=== PATIENT | male | born 1945 | race Caucasian/White ===

== ENCOUNTER 2017-03-01 23:01 | Inpatient (IN) | payer OTHER ==
[~2017-03-01] VITALS: Ht 190.5 cm; Wt 107.5 kg
[~2017-03-01 23:01] MED LIST: AMOCLA875 PO; ASPI81EC PO; CEPH500 PO; CLOP75 PO; GLIM4 PO; GLYB1.5 PO; Humulin N100 UNIT/1 SQ; KAYEXALATE PO; LEVFLO500 PO; LISI20 PO; METF500 PO; MULVIT PO; NOVOLIN; RIFA300 PO; SODBIC650 PO; SULTRIDS PO; VANCOMYCIN1.5 GM/250 IV; VICODIN 5-3001 EACH PO; [UNRECOGNIZED DRUG - SUPPLY]
[2017-03-01 23:55] LABS: BASOPHILS ABSOLUTE AUTO 0.02 K/mm3 (0.00-0.23); BASOPHILS PERCENT AUTO 0 % (0-2); EOSINOPHILS PERCENT AUTO 0 % (0-6); Hematocrit 32.6 % (37.0-53.0); Hemoglobin 11.3 g/dL (13.5-17.5); IMMATURE GRAN ABSOLUTE AUTO 0.05 K/mm3 (0.00-0.10); IMMATURE GRAN PERCENT AUTO 0 % (0-1); LYMPHOCYTES ABSOLUTE AUTO 0.48 K/mm3 (0.84-5.20); LYMPHOCYTES PERCENT AUTO 4 % (21-46); MONOCYTES ABSOLUTE AUTO 0.84 K/mm3 (0.16-1.47); MONOCYTES PERCENT AUTO 6 % (4-13); Mean Corpuscular HGB 31.7 pg (26.0-34.0); Mean Corpuscular HGB Conc 34.7 g/dL (31.5-36.5); Mean Corpuscular Volume 92 fL (80-100); Mean Platelet Volume 9.1 fL (9.1-12.4); NEUTROPHILS ABSOLUTE AUTO 12.44 K/mm3 (1.96-9.15); NEUTROPHILS PERCENT AUTO 90 % (41-73); Platelet Count 227 K/mm3 (150-400); RDW Coefficient Variation 13.1 % (11.7-14.2); RDW Standard Deviation 43.5 fL (35.1-46.3); Red Blood Cell Count 3.56 M/mm3 (4.30-5.90); White Blood Cell Count 13.83 K/mm3 (4.00-11.30)
[2017-03-02 00:07] LABS: Influenza A Negative (NEGATIVE); Influenza B Negative (NEGATIVE)
[2017-03-02 00:07] LABS: International Normalized Ratio 1.18; Prothrombin Time Results 12.3 Sec (9.7-11.5)
[2017-03-02 00:18] LABS: Albumin, Blood 3.6 g/dL (3.4-5.0); Albumin/Globulin Ratio 0.8 (0.8-1.8); Bilirubin, Total 0.7 mg/dL (0.1-1.0); Bun/Creatinine Ratio 20.4 (12.0-20.0); Calcium, Blood 8.5 mg/dL (8.5-10.1); Creatinine, Blood 2.16 mg/dL (0.60-1.20); Globulin, Blood 4.5 g/dL (2.2-4.0); Potassium, Blood 5.6 mmol/L (3.5-5.5); Total Protein, Blood 8.1 g/dL (6.4-8.2)
[2017-03-02 00:24] LABS: Troponin I 0.818 ng/mL (0.000-0.040)
[2017-03-02 02:31] LABS: Source, Urine Clean Catch
[2017-03-02 02:34] LABS: Bilirubin, Urine Neg (Neg); Blood, Urine 3+ (Neg); Glucose Qualitative, Urine 3+ (Neg); Ketones, Urine Neg (Neg); Leukocyte Esterase, Urine 3+ (Neg); Nitrite, Urine Pos (Neg); Protein, Urine 3+ (Neg); Specific Gravity, Urine 1.015 (1.003-1.022); Urobilinogen, Urine NORM (Normal)
[2017-03-02 02:40] LABS: Appearance, Urine Cloudy (Clear); Bacteria Many /hpf; Color, Urine Yellow (P-Yellow); Squamous Epithelial Cells Few /hpf (Few); White Blood Cells, Urine 25-50 /hpf (0-5)
[2017-03-02 02:41] LABS: Amorphous Light (0-Heavy)
[2017-03-02 09:15] LABS: Troponin I 0.891 ng/mL (0.000-0.040)
[2017-03-02 15:32] LABS: BASOPHILS ABSOLUTE AUTO 0.01 K/mm3 (0.00-0.23); BASOPHILS PERCENT AUTO 0 % (0-2); EOSINOPHILS PERCENT AUTO 0 % (0-6); Hematocrit 29.7 % (37.0-53.0); Hemoglobin 10.3 g/dL (13.5-17.5); IMMATURE GRAN ABSOLUTE AUTO 0.02 K/mm3 (0.00-0.10); IMMATURE GRAN PERCENT AUTO 0 % (0-1); LYMPHOCYTES ABSOLUTE AUTO 0.61 K/mm3 (0.84-5.20); LYMPHOCYTES PERCENT AUTO 5 % (21-46); MONOCYTES ABSOLUTE AUTO 0.58 K/mm3 (0.16-1.47); MONOCYTES PERCENT AUTO 5 % (4-13); Mean Corpuscular HGB 31.7 pg (26.0-34.0); Mean Corpuscular HGB Conc 34.7 g/dL (31.5-36.5); Mean Corpuscular Volume 91 fL (80-100); NEUTROPHILS ABSOLUTE AUTO 11.27 K/mm3 (1.96-9.15); NEUTROPHILS PERCENT AUTO 90 % (41-73); Platelet Count 197 K/mm3 (150-400); RDW Coefficient Variation 13.4 % (11.7-14.2); RDW Standard Deviation 44.7 fL (35.1-46.3); Red Blood Cell Count 3.25 M/mm3 (4.30-5.90); White Blood Cell Count 12.49 K/mm3 (4.00-11.30)
[2017-03-02 16:02] LABS: Alanine Aminotransfer (ALT/SGP 20 U/L (12-78); Albumin, Blood 3.1 g/dL (3.4-5.0); Albumin/Globulin Ratio 0.7 (0.8-1.8); Alk Phos 57 U/L (50-136); Anion Gap 13 mmol/L (6-16); Aspartate Aminotrans (AST/SGOT 26 U/L (12-37); Bilirubin, Total 0.5 mg/dL (0.1-1.0); Blood Urea Nitrogen 51 mg/dL (8-24); Bun/Creatinine Ratio 19.7 (12.0-20.0); CO2, Blood 19 mmol/L (21-32); CPK Creatine Kinase 272 U/L (39-308); Calcium, Blood 8.2 mg/dL (8.5-10.1); Chloride, Blood 102 mmol/L (98-108); Creatinine, Blood 2.59 mg/dL (0.60-1.20); Globulin, Blood 4.2 g/dL (2.2-4.0); Glomerular Filtration Rate 26 (60-); Glucose, Blood 261 mg/dL (70-99); Phosphorus, Blood 2.7 mg/dL (2.5-4.9); Potassium, Blood 5.1 mmol/L (3.5-5.5); Sodium, Blood 134 mmol/L (136-145); Total Protein, Blood 7.3 g/dL (6.4-8.2); Troponin I 0.448 ng/mL (0.000-0.040)
[2017-03-02] MEDS ORDERED: GEMF600 PO (17:26)
[2017-03-02] MEDS ORDERED: TRADJENTA5 MG PO (17:27)
[2017-03-02] MEDS ORDERED: LISI5 PO (17:27)
[2017-03-02] MEDS ORDERED: GABA300 PO (17:27)
[2017-03-03 05:03] LABS: Hematocrit 28.6 % (37.0-53.0); Hemoglobin 9.8 g/dL (13.5-17.5); Mean Corpuscular HGB 31.4 pg (26.0-34.0); Mean Corpuscular HGB Conc 34.3 g/dL (31.5-36.5); Mean Corpuscular Volume 92 fL (80-100); Mean Platelet Volume 9.3 fL (9.1-12.4); Platelet Count 193 K/mm3 (150-400); RDW Coefficient Variation 13.3 % (11.7-14.2); RDW Standard Deviation 44.3 fL (35.1-46.3); Red Blood Cell Count 3.12 M/mm3 (4.30-5.90); White Blood Cell Count 10.83 K/mm3 (4.00-11.30)
[2017-03-03 05:24] LABS: Albumin/Globulin Ratio 0.7 (0.8-1.8); Bilirubin, Total 0.6 mg/dL (0.1-1.0); Bun/Creatinine Ratio 19.7 (12.0-20.0); Calcium, Blood 8.2 mg/dL (8.5-10.1); Creatinine, Blood 2.54 mg/dL (0.60-1.20); Globulin, Blood 4.2 g/dL (2.2-4.0); Potassium, Blood 4.3 mmol/L (3.5-5.5); Total Protein, Blood 7.2 g/dL (6.4-8.2)
[2017-03-03 06:24] LABS: BAND PERCENT MAN 6 % (0-8); BASOPHILS PERCENT MAN 0 % (0-2); EOSINOPHILS PERCENT MAN 1 % (0-6); LYMPHOCYTES ABSOLUTE MAN 1.08 K/mm3 (0.84-5.20); LYMPHOCYTES PERCENT MAN 10 % (21-46); MONOCYTES ABSOLUTE MAN 0.32 K/mm3 (0.16-1.47); MONOCYTES PERCENT MAN 3 % (4-13); NEUTROPHILS ABSOLUTE MAN 9.31 K/mm3 (1.96-9.15); SEG NEUTROPHILS PERCENT MAN 80 % (41-73); TOTAL CELLS COUNTED 100
[2017-03-04 05:19] LABS: BASOPHILS ABSOLUTE AUTO 0.01 K/mm3 (0.00-0.23); BASOPHILS PERCENT AUTO 0 % (0-2); EOSINOPHILS ABSOLUTE AUTO 0.21 K/mm3 (0.00-0.68); EOSINOPHILS PERCENT AUTO 3 % (0-6); Hematocrit 28.3 % (37.0-53.0); Hemoglobin 9.6 g/dL (13.5-17.5); IMMATURE GRAN ABSOLUTE AUTO 0.02 K/mm3 (0.00-0.10); IMMATURE GRAN PERCENT AUTO 0 % (0-1); LYMPHOCYTES ABSOLUTE AUTO 1.32 K/mm3 (0.84-5.20); LYMPHOCYTES PERCENT AUTO 17 % (21-46); MONOCYTES ABSOLUTE AUTO 0.84 K/mm3 (0.16-1.47); MONOCYTES PERCENT AUTO 11 % (4-13); Mean Corpuscular HGB 31.2 pg (26.0-34.0); Mean Corpuscular HGB Conc 33.9 g/dL (31.5-36.5); Mean Corpuscular Volume 92 fL (80-100); Mean Platelet Volume 9.5 fL (9.1-12.4); NEUTROPHILS ABSOLUTE AUTO 5.21 K/mm3 (1.96-9.15); NEUTROPHILS PERCENT AUTO 69 % (41-73); Platelet Count 202 K/mm3 (150-400); RDW Coefficient Variation 13.4 % (11.7-14.2); RDW Standard Deviation 45.2 fL (35.1-46.3); Red Blood Cell Count 3.08 M/mm3 (4.30-5.90); White Blood Cell Count 7.61 K/mm3 (4.00-11.30)
[2017-03-04 05:40] LABS: Albumin, Blood 2.9 g/dL (3.4-5.0); Albumin/Globulin Ratio 0.7 (0.8-1.8); Bilirubin, Total 0.4 mg/dL (0.1-1.0); Bun/Creatinine Ratio 21.7 (12.0-20.0); Calcium, Blood 8.1 mg/dL (8.5-10.1); Creatinine, Blood 2.17 mg/dL (0.60-1.20); Globulin, Blood 4.1 g/dL (2.2-4.0)
[2017-03-05 04:47] LABS: BASOPHILS ABSOLUTE AUTO 0.03 K/mm3 (0.00-0.23); BASOPHILS PERCENT AUTO 0 % (0-2); EOSINOPHILS ABSOLUTE AUTO 0.21 K/mm3 (0.00-0.68); EOSINOPHILS PERCENT AUTO 3 % (0-6); Hematocrit 26.9 % (37.0-53.0); Hemoglobin 9.1 g/dL (13.5-17.5); IMMATURE GRAN ABSOLUTE AUTO 0.05 K/mm3 (0.00-0.10); IMMATURE GRAN PERCENT AUTO 1 % (0-1); LYMPHOCYTES PERCENT AUTO 19 % (21-46); MONOCYTES ABSOLUTE AUTO 0.73 K/mm3 (0.16-1.47); MONOCYTES PERCENT AUTO 9 % (4-13); Mean Corpuscular HGB Conc 33.8 g/dL (31.5-36.5); Mean Corpuscular Volume 92 fL (80-100); Mean Platelet Volume 9.4 fL (9.1-12.4); NEUTROPHILS ABSOLUTE AUTO 5.42 K/mm3 (1.96-9.15); NEUTROPHILS PERCENT AUTO 68 % (41-73); Platelet Count 206 K/mm3 (150-400); RDW Coefficient Variation 12.8 % (11.7-14.2); RDW Standard Deviation 42.5 fL (35.1-46.3); Red Blood Cell Count 2.94 M/mm3 (4.30-5.90); White Blood Cell Count 7.94 K/mm3 (4.00-11.30)
[2017-03-05 05:08] LABS: Albumin, Blood 2.9 g/dL (3.4-5.0); Albumin/Globulin Ratio 0.7 (0.8-1.8); Bilirubin, Total 0.4 mg/dL (0.1-1.0); Bun/Creatinine Ratio 21.1 (12.0-20.0); Calcium, Blood 8.2 mg/dL (8.5-10.1); Creatinine, Blood 1.8 mg/dL (0.60-1.20); Globulin, Blood 4.1 g/dL (2.2-4.0)
[2017-03-05] MEDS ORDERED: Acetaminophen325 M1 PO (12:25)
[2017-03-05] MEDS ORDERED: LEVEMIR FL100 UNIT/1 SC (12:26)
[2017-03-05] MEDS ORDERED: INSU100I6 SC (12:26)
[2017-03-05] MEDS ORDERED: CIPR500 PO (12:27)
== END 2017-03-05 14:36 | disposition home or self-care (01) | DRG 872 ==
LOC: ER 23:01 → MEDS 03-02 00:48 → ENPENDDIS 03-05 12:00 → MEDS 03-05 14:36
PROVIDERS: Emergency Medicine; Internal Medicine; Internal Medicine Endocrinology, Diabetes & Metabolism
DX: A41.51 Sepsis due to Escherichia coli [E. coli] (principal); E11.22 Type 2 diabetes mellitus with diabetic chronic kidney disease; E87.2 Acidosis; E11.40 Type 2 diabetes mellitus with diabetic neuropathy, unspecified; E11.65 Type 2 diabetes mellitus with hyperglycemia; I12.9 Hypertensive chronic kidney disease with stage 1 through stage 4 chronic kidney disease, or unspecified chronic kidney disease; E87.5 Hyperkalemia; N18.3 Chronic kidney disease, stage 3 (moderate); D63.1 Anemia in chronic kidney disease; E86.9 Volume depletion, unspecified; Z88.8 Allergy status to other drugs, medicaments and biological substances; Z79.84 Long term (current) use of oral hypoglycemic drugs; Z79.02 Long term (current) use of antithrombotics/antiplatelets; Z79.82 Long term (current) use of aspirin; Z79.899 Other long term (current) drug therapy; Z89.422 Acquired absence of other left toe(s)
CPT/HCPCS: 36415; 71046; 80053; 81001; 82550; 82947; 83605; 84100; 84145; 84484; 85025; 85610; 85730; 87040; 87077; 87086; 87186; 87804; 93005; 93010; 96365; 99285; J0610; J0696; J1650; J1815; J7030; Q2038

== ENCOUNTER 2019-02-14 16:53 | Inpatient (IN) | payer OTHER ==
[~2019-02-14] VITALS: Ht 190.5 cm; Wt 109.8 kg
[~2019-02-14 16:53] MED LIST changes: +Acetaminophen325 M1 PO; +CIPR500 PO; +GABA300 PO; +GEMF600 PO; +INSU100I6 SC; +LEVEMIR FL100 UNIT/1 SC; +LISI5 PO; +TRADJENTA5 MG PO
[2019-02-14 17:16] LABS: Source, Urine Clean Catch
[2019-02-14 17:23] LABS: Bilirubin, Urine Neg (Neg); Blood, Urine 4+ (Neg); Glucose Qualitative, Urine 3+ (Neg); Ketones, Urine 1+ (Neg); Leukocyte Esterase, Urine 3+ (Neg); Nitrite, Urine Pos (Neg); Protein, Urine 4+ (Neg); Urobilinogen, Urine NORM (Normal)
[2019-02-14 17:31] LABS: Appearance, Urine Hazy (Clear); Color, Urine Yellow (P-Yellow)
[2019-02-14 17:32] LABS: White Blood Cells, Urine 50-100 /hpf (0-5)
[2019-02-14 17:33] LABS: Bacteria Many /hpf; Squamous Epithelial Cells Few /hpf (Few)
[2019-02-14 17:35] LABS: Calcium, Ionized (POC) 1.17 mmol/L (1.10-1.46); Chloride (POC) 108 mmol/L (98-108); Glucose (ISTAT POC) 410 mg/dL (70-99); Hemoglobin (POC) 10.2 g/dL (13.5-17.5); Potassium (POC) 4.8 mmol/L (3.5-5.5); Sodium (POC) 136 mmol/L (135-148); Total CO2 (POC) 19 mmol/L (21-32)
[2019-02-14 17:37] LABS: BASOPHILS ABSOLUTE AUTO 0.04 K/mm3 (0.00-0.23); BASOPHILS PERCENT AUTO 0 % (0-2); EOSINOPHILS ABSOLUTE AUTO 0.15 K/mm3 (0.00-0.68); EOSINOPHILS PERCENT AUTO 1 % (0-6); Hematocrit 32.4 % (37.0-53.0); Hemoglobin 10.7 g/dL (13.5-17.5); IMMATURE GRAN ABSOLUTE AUTO 0.07 K/mm3 (0.00-0.10); IMMATURE GRAN PERCENT AUTO 0 % (0-1); LYMPHOCYTES ABSOLUTE AUTO 0.79 K/mm3 (0.84-5.20); LYMPHOCYTES PERCENT AUTO 5 % (21-46); MONOCYTES ABSOLUTE AUTO 1.17 K/mm3 (0.16-1.47); MONOCYTES PERCENT AUTO 7 % (4-13); Mean Corpuscular HGB 30.2 pg (26.0-34.0); Mean Corpuscular Volume 92 fL (80-100); Mean Platelet Volume 9.7 fL (9.1-12.4); NEUTROPHILS ABSOLUTE AUTO 14.96 K/mm3 (1.96-9.15); NEUTROPHILS PERCENT AUTO 87 % (41-73); Platelet Count 301 K/mm3 (150-400); RDW Coefficient Variation 11.9 % (11.7-14.2); Red Blood Cell Count 3.54 M/mm3 (4.30-5.90); White Blood Cell Count 17.18 K/mm3 (4.00-11.30)
[2019-02-14 18:06] LABS: Alanine Aminotransfer (ALT/SGP 24 U/L (12-78); Albumin, Blood 2.9 g/dL (3.4-5.0); Albumin/Globulin Ratio 0.6 (0.8-1.8); Alk Phos 102 U/L (50-136); Anion Gap 8 mmol/L (6-16); Aspartate Aminotrans (AST/SGOT 50 U/L (12-37); Bilirubin, Total 0.7 mg/dL (0.1-1.0); Blood Urea Nitrogen 49 mg/dL (8-24); Bun/Creatinine Ratio 25.7 (12.0-20.0); CHOL/HDL RATIO 3.4; CO2, Blood 20 mmol/L (21-32); Calcium, Blood 8.8 mg/dL (8.5-10.1); Chloride, Blood 109 mmol/L (98-108); Cholesterol 159 mg/dL (50-200); Creatinine, Blood 1.91 mg/dL (0.60-1.20); Glomerular Filtration Rate 37 (60-); Glucose, Blood 393 mg/dL (70-99); HDL Cholesterol 47 mg/dL (>39); LDL/HDL RATIO 1.7; Low Density Lipoprotein Chol 82 mg/dL (0-110); Magnesium, Blood 1.6 mg/dL (1.6-2.4); Potassium, Blood 4.7 mmol/L (3.5-5.5); Sodium, Blood 137 mmol/L (136-145); Total Protein, Blood 7.9 g/dL (6.4-8.2); Triglycerides 149 mg/dL (30-160); Very Low Density Lipoprot Chol 29 mg/dL (6-32)
--- NOTE | 2019-02-14 20:15 | NUR ---
Echocardiogram using 0.60ml of Definity contrast performed.
[2019-02-14 21:55] LABS: Influenza A Negative (NEGATIVE); Influenza B Negative (NEGATIVE)
--- NOTE | 2019-02-14 22:17 | NUR ---
PATIENT ARRIVED TO ICU 9 @ 1915 FROM [facility] PATIENT PLACED ON ICU MONITORS, AWAITING ROOM FOR TRANSFER TO [facility]. PATIENT DENIES PAIN AT THIS TIME. TR BAND IN PLACE TO RIGHT WRIST, AREA CLEAR AND NO SWELLING SEEN. HIGH SCALER ARRIVED AND DOCTOR ORO IN TO SEE PATIENT REGARDING ADMIT UNTIL ABLE TO TRANSFER, CONSULT TO DOCTOR CERNA FOR ANTIBIOTIC AND INSULIN ORDERS, DUE TO PASSABLE SEPSIS. WOUND TO LEFT FOOT WITH DRESSING INTACT. DRESSING REMOVED BY DOCTOR CERNA AND MRSA SWAB OBTAINED FROM WOUND NARES AND THROAT. AT APROX 2100 ROOM ASSIGNMENT OBTAINED PER DOCTOR ORO HOLD HEPARIN DRIP AT THIS TIME PLAN TO START AFTER TRANSFER IF NEEDED, START PLAVIX TOMORROW. AT 2218 TRANSPORT HERE MERREM DONE AND VANCO STARTED. REPORT GIVEN TO LLOYD THURMAN AT CCU IN [facility]
== END 2019-02-14 22:18 | disposition short-term general hospital (02) | DRG 250 ==
LOC: ER 16:53 → ICUW 17:26
PROVIDERS: Emergency Medicine; Physician Assistant; ADMIT Internal Medicine Interventional Cardiology
PROC: 4A023N7 Measurement of Cardiac Sampling and Pressure, Left Heart, Percutaneous Approach (ICD-10-PCS; principal; 2019-02-14)
PROC: 02703ZZ Dilation of Coronary Artery, One Artery, Percutaneous Approach (ICD-10-PCS; 2019-02-14)
PROC: B2111ZZ Fluoroscopy of Multiple Coronary Arteries using Low Osmolar Contrast (ICD-10-PCS; 2019-02-14)
DX: I21.3 ST elevation (STEMI) myocardial infarction of unspecified site (principal); A41.9 Sepsis, unspecified organism; L03.116 Cellulitis of left lower limb; L97.429 Non-pressure chronic ulcer of left heel and midfoot with unspecified severity; E11.51 Type 2 diabetes mellitus with diabetic peripheral angiopathy without gangrene; E11.22 Type 2 diabetes mellitus with diabetic chronic kidney disease; I12.9 Hypertensive chronic kidney disease with stage 1 through stage 4 chronic kidney disease, or unspecified chronic kidney disease; I25.10 Atherosclerotic heart disease of native coronary artery without angina pectoris; E11.621 Type 2 diabetes mellitus with foot ulcer; N18.3 Chronic kidney disease, stage 3 (moderate); Z89.422 Acquired absence of other left toe(s); Z79.4 Long term (current) use of insulin
CPT/HCPCS: 36415; 76937; 80047; 80053; 80061; 81001; 82010; 82947; 83605; 83735; 84484; 85014; 85025; 85347; 85730; 86850; 86900; 86901; 87040; 87077; 87081; 87086; 87147; 87186; 87804; 92941; 93005; 93010; 93458; 99152; 99153; 99285-25; C1725; C1769; C1887; C1894; C8929; J1644; J1815; J2185; J2250; J3010; J3370; J7030; J7050; Q9957; Q9967

== ENCOUNTER 2019-02-26 16:51 | Day surgery (SDC) | payer OTHER | END 2019-02-26 23:28 | disposition home or self-care (01) | LOC: ATC 16:51 | DX: A49.01 Methicillin susceptible Staphylococcus aureus infection, unspecified site (principal); I21.09 ST elevation (STEMI) myocardial infarction involving other coronary artery of anterior wall; I10 Essential (primary) hypertension; E78.5 Hyperlipidemia, unspecified; E11.621 Type 2 diabetes mellitus with foot ulcer; L97.529 Non-pressure chronic ulcer of other part of left foot with unspecified severity; Z88.8 Allergy status to other drugs, medicaments and biological substances; Z79.2 Long term (current) use of antibiotics; Z79.82 Long term (current) use of aspirin; Z79.02 Long term (current) use of antithrombotics/antiplatelets; Z79.4 Long term (current) use of insulin; Z79.899 Other long term (current) drug therapy; Z89.429 Acquired absence of other toe(s), unspecified side | CPT/HCPCS: 96365; J0696 ==

== ENCOUNTER 2019-02-27 00:07 | Day surgery (SDC) | payer OTHER | END 2019-02-27 16:40 | disposition home or self-care (01) | LOC: ATC 00:07 | DX: A41.01 Sepsis due to Methicillin susceptible Staphylococcus aureus (principal); E11.69 Type 2 diabetes mellitus with other specified complication; M86.672 Other chronic osteomyelitis, left ankle and foot; E11.621 Type 2 diabetes mellitus with foot ulcer; L97.529 Non-pressure chronic ulcer of other part of left foot with unspecified severity; I21.09 ST elevation (STEMI) myocardial infarction involving other coronary artery of anterior wall; I25.10 Atherosclerotic heart disease of native coronary artery without angina pectoris; E11.51 Type 2 diabetes mellitus with diabetic peripheral angiopathy without gangrene; E11.22 Type 2 diabetes mellitus with diabetic chronic kidney disease; N18.9 Chronic kidney disease, unspecified; E78.5 Hyperlipidemia, unspecified; I51.89 Other ill-defined heart diseases; I27.20 Pulmonary hypertension, unspecified; E43 Unspecified severe protein-calorie malnutrition; D50.9 Iron deficiency anemia, unspecified; E66.9 Obesity, unspecified; Z79.82 Long term (current) use of aspirin; Z79.2 Long term (current) use of antibiotics; Z79.4 Long term (current) use of insulin; Z79.02 Long term (current) use of antithrombotics/antiplatelets; Z79.899 Other long term (current) drug therapy; Z89.429 Acquired absence of other toe(s), unspecified side | CPT/HCPCS: 96365; J0696 ==

== ENCOUNTER 2019-02-28 00:12 | Day surgery (SDC) | payer OTHER | END 2019-02-28 16:25 | disposition home or self-care (01) | LOC: ATC 00:12 | DX: A41.01 Sepsis due to Methicillin susceptible Staphylococcus aureus (principal); E11.69 Type 2 diabetes mellitus with other specified complication; M86.672 Other chronic osteomyelitis, left ankle and foot; E11.621 Type 2 diabetes mellitus with foot ulcer; L97.529 Non-pressure chronic ulcer of other part of left foot with unspecified severity; I21.09 ST elevation (STEMI) myocardial infarction involving other coronary artery of anterior wall; I25.10 Atherosclerotic heart disease of native coronary artery without angina pectoris; E11.51 Type 2 diabetes mellitus with diabetic peripheral angiopathy without gangrene; E11.22 Type 2 diabetes mellitus with diabetic chronic kidney disease; N18.9 Chronic kidney disease, unspecified; E78.5 Hyperlipidemia, unspecified; I51.89 Other ill-defined heart diseases; I27.20 Pulmonary hypertension, unspecified; E43 Unspecified severe protein-calorie malnutrition; D50.9 Iron deficiency anemia, unspecified; E66.9 Obesity, unspecified; Z79.2 Long term (current) use of antibiotics; Z79.82 Long term (current) use of aspirin; Z79.4 Long term (current) use of insulin; Z79.02 Long term (current) use of antithrombotics/antiplatelets; Z79.899 Other long term (current) drug therapy; Z89.429 Acquired absence of other toe(s), unspecified side | CPT/HCPCS: 96365; J0696; J2997 ==

== ENCOUNTER 2019-03-01 00:07 | Day surgery (SDC) | payer OTHER ==
[2019-03-01 16:24] LABS: BASOPHILS ABSOLUTE AUTO 0.11 K/mm3 (0.00-0.23); BASOPHILS PERCENT AUTO 1 % (0-2); EOSINOPHILS ABSOLUTE AUTO 0.35 K/mm3 (0.00-0.68); EOSINOPHILS PERCENT AUTO 3 % (0-6); Hematocrit 31.9 % (37.0-53.0); Hemoglobin 10.2 g/dL (13.5-17.5); IMMATURE GRAN ABSOLUTE AUTO 0.06 K/mm3 (0.00-0.10); IMMATURE GRAN PERCENT AUTO 1 % (0-1); LYMPHOCYTES ABSOLUTE AUTO 1.85 K/mm3 (0.84-5.20); LYMPHOCYTES PERCENT AUTO 16 % (21-46); MONOCYTES ABSOLUTE AUTO 0.73 K/mm3 (0.16-1.47); MONOCYTES PERCENT AUTO 6 % (4-13); Mean Corpuscular HGB 29.9 pg (26.0-34.0); Mean Corpuscular Volume 94 fL (80-100); Mean Platelet Volume 9.2 fL (9.1-12.4); NEUTROPHILS ABSOLUTE AUTO 8.27 K/mm3 (1.96-9.15); NEUTROPHILS PERCENT AUTO 73 % (41-73); Platelet Count 385 K/mm3 (150-400); RDW Coefficient Variation 12.3 % (11.7-14.2); RDW Standard Deviation 42.1 fL (35.1-46.3); Red Blood Cell Count 3.41 M/mm3 (4.30-5.90); White Blood Cell Count 11.37 K/mm3 (4.00-11.30)
[2019-03-01 16:39] LABS: Bun/Creatinine Ratio 26.7 (12.0-20.0); C-REACTIVE PROTEIN, EXT RANGE 1.38 mg/dL (0.000-0.300); Calcium, Blood 8.6 mg/dL (8.5-10.1); Creatinine, Blood 2.36 mg/dL (0.60-1.20); Potassium, Blood 4.9 mmol/L (3.5-5.5)
== END 2019-03-01 16:34 | disposition home or self-care (01) ==
LOC: ATC 00:07
DX: A41.01 Sepsis due to Methicillin susceptible Staphylococcus aureus (principal); E11.69 Type 2 diabetes mellitus with other specified complication; M86.672 Other chronic osteomyelitis, left ankle and foot; E11.621 Type 2 diabetes mellitus with foot ulcer; L97.529 Non-pressure chronic ulcer of other part of left foot with unspecified severity; I21.09 ST elevation (STEMI) myocardial infarction involving other coronary artery of anterior wall; I25.10 Atherosclerotic heart disease of native coronary artery without angina pectoris; E11.51 Type 2 diabetes mellitus with diabetic peripheral angiopathy without gangrene; E11.22 Type 2 diabetes mellitus with diabetic chronic kidney disease; N18.9 Chronic kidney disease, unspecified; E78.5 Hyperlipidemia, unspecified; I51.89 Other ill-defined heart diseases; I27.20 Pulmonary hypertension, unspecified; E43 Unspecified severe protein-calorie malnutrition; D50.9 Iron deficiency anemia, unspecified; E66.9 Obesity, unspecified; Z79.2 Long term (current) use of antibiotics; Z79.82 Long term (current) use of aspirin; Z79.4 Long term (current) use of insulin; Z79.02 Long term (current) use of antithrombotics/antiplatelets; Z79.899 Other long term (current) drug therapy; Z89.429 Acquired absence of other toe(s), unspecified side
CPT/HCPCS: 80048; 85025; 86140; 96365; J0696; J2997

== ENCOUNTER 2019-03-02 07:58 | Day surgery (SDC) | payer OTHER | END 2019-03-02 15:28 | disposition home or self-care (01) | LOC: ATC 07:58 | DX: A49.01 Methicillin susceptible Staphylococcus aureus infection, unspecified site (principal); I21.09 ST elevation (STEMI) myocardial infarction involving other coronary artery of anterior wall; E78.5 Hyperlipidemia, unspecified; E11.621 Type 2 diabetes mellitus with foot ulcer; L97.529 Non-pressure chronic ulcer of other part of left foot with unspecified severity; I25.10 Atherosclerotic heart disease of native coronary artery without angina pectoris; E11.51 Type 2 diabetes mellitus with diabetic peripheral angiopathy without gangrene; E11.22 Type 2 diabetes mellitus with diabetic chronic kidney disease; N18.9 Chronic kidney disease, unspecified; E66.9 Obesity, unspecified; Z79.2 Long term (current) use of antibiotics; Z79.82 Long term (current) use of aspirin; Z79.4 Long term (current) use of insulin; Z79.899 Other long term (current) drug therapy; Z89.429 Acquired absence of other toe(s), unspecified side; Z88.8 Allergy status to other drugs, medicaments and biological substances; Z95.5 Presence of coronary angioplasty implant and graft; I10 Essential (primary) hypertension | CPT/HCPCS: 96365; J0696 ==

== ENCOUNTER 2019-03-03 00:19 | Day surgery (SDC) | payer OTHER | END 2019-03-03 22:49 | disposition home or self-care (01) | LOC: ATC 00:19 | DX: A49.01 Methicillin susceptible Staphylococcus aureus infection, unspecified site (principal); E11.51 Type 2 diabetes mellitus with diabetic peripheral angiopathy without gangrene; E11.22 Type 2 diabetes mellitus with diabetic chronic kidney disease; N18.9 Chronic kidney disease, unspecified; E78.5 Hyperlipidemia, unspecified; E66.9 Obesity, unspecified; Z79.4 Long term (current) use of insulin; Z79.82 Long term (current) use of aspirin; Z79.02 Long term (current) use of antithrombotics/antiplatelets; Z79.899 Other long term (current) drug therapy; Z88.8 Allergy status to other drugs, medicaments and biological substances | CPT/HCPCS: 96365; J0696 ==

== ENCOUNTER 2019-03-04 08:21 | Day surgery (SDC) | payer OTHER | END 2019-03-04 23:31 | disposition home or self-care (01) | LOC: WOUND 08:21 | DX: E11.621 Type 2 diabetes mellitus with foot ulcer (principal); E11.40 Type 2 diabetes mellitus with diabetic neuropathy, unspecified; E11.22 Type 2 diabetes mellitus with diabetic chronic kidney disease; L89.892 Pressure ulcer of other site, stage 2; L97.522 Non-pressure chronic ulcer of other part of left foot with fat layer exposed; E78.5 Hyperlipidemia, unspecified; N18.9 Chronic kidney disease, unspecified; I25.2 Old myocardial infarction; D63.1 Anemia in chronic kidney disease; Z88.8 Allergy status to other drugs, medicaments and biological substances; Z79.82 Long term (current) use of aspirin; Z79.899 Other long term (current) drug therapy; Z79.4 Long term (current) use of insulin | CPT/HCPCS: 96365; G0463; J0696 ==

== ENCOUNTER 2019-03-05 02:25 | Day surgery (SDC) | payer OTHER | END 2019-03-05 16:30 | disposition home or self-care (01) | LOC: ATC 02:25 | DX: A41.01 Sepsis due to Methicillin susceptible Staphylococcus aureus (principal); E11.69 Type 2 diabetes mellitus with other specified complication; M86.672 Other chronic osteomyelitis, left ankle and foot; E11.621 Type 2 diabetes mellitus with foot ulcer; L97.529 Non-pressure chronic ulcer of other part of left foot with unspecified severity; E11.51 Type 2 diabetes mellitus with diabetic peripheral angiopathy without gangrene; E11.22 Type 2 diabetes mellitus with diabetic chronic kidney disease; N18.3 Chronic kidney disease, stage 3 (moderate); I21.09 ST elevation (STEMI) myocardial infarction involving other coronary artery of anterior wall; E78.5 Hyperlipidemia, unspecified; I25.10 Atherosclerotic heart disease of native coronary artery without angina pectoris; I10 Essential (primary) hypertension; I27.20 Pulmonary hypertension, unspecified; D63.1 Anemia in chronic kidney disease; E43 Unspecified severe protein-calorie malnutrition; Z79.2 Long term (current) use of antibiotics; Z79.82 Long term (current) use of aspirin; Z79.02 Long term (current) use of antithrombotics/antiplatelets; Z79.4 Long term (current) use of insulin; Z79.899 Other long term (current) drug therapy; Z88.8 Allergy status to other drugs, medicaments and biological substances; Z89.432 Acquired absence of left foot; Z95.5 Presence of coronary angioplasty implant and graft | CPT/HCPCS: 96365; J0696 ==

== ENCOUNTER 2019-03-06 10:44 | Day surgery (SDC) | payer OTHER ==
[2019-03-07] MEDS ORDERED: Rocephin 1g1 G/50 ML IV (11:48)
== END 2019-03-06 11:33 | disposition home or self-care (01) ==
LOC: ATC 10:44
DX: A41.01 Sepsis due to Methicillin susceptible Staphylococcus aureus (principal); E11.69 Type 2 diabetes mellitus with other specified complication; M86.672 Other chronic osteomyelitis, left ankle and foot; E11.621 Type 2 diabetes mellitus with foot ulcer; L97.529 Non-pressure chronic ulcer of other part of left foot with unspecified severity; E11.52 Type 2 diabetes mellitus with diabetic peripheral angiopathy with gangrene; E11.22 Type 2 diabetes mellitus with diabetic chronic kidney disease; N18.3 Chronic kidney disease, stage 3 (moderate); I21.09 ST elevation (STEMI) myocardial infarction involving other coronary artery of anterior wall; E78.5 Hyperlipidemia, unspecified; I25.10 Atherosclerotic heart disease of native coronary artery without angina pectoris; I10 Essential (primary) hypertension; I27.20 Pulmonary hypertension, unspecified; D63.1 Anemia in chronic kidney disease; E43 Unspecified severe protein-calorie malnutrition; Z79.2 Long term (current) use of antibiotics; Z79.82 Long term (current) use of aspirin; Z79.02 Long term (current) use of antithrombotics/antiplatelets; Z79.4 Long term (current) use of insulin; Z79.899 Other long term (current) drug therapy; Z88.8 Allergy status to other drugs, medicaments and biological substances; Z89.432 Acquired absence of left foot; Z95.5 Presence of coronary angioplasty implant and graft; Z68.29 Body mass index [BMI] 29.0-29.9, adult
CPT/HCPCS: 96365; J0696

== ENCOUNTER 2019-03-07 10:47 | Day surgery (SDC) | payer OTHER ==
[2019-03-07] MEDS ORDERED: Rocephin 1g1 G/50 ML IV (11:48)
== END 2019-03-07 11:43 | disposition home or self-care (01) ==
LOC: ATC 10:47
DX: A41.01 Sepsis due to Methicillin susceptible Staphylococcus aureus (principal); E11.69 Type 2 diabetes mellitus with other specified complication; M86.672 Other chronic osteomyelitis, left ankle and foot; E11.621 Type 2 diabetes mellitus with foot ulcer; L97.529 Non-pressure chronic ulcer of other part of left foot with unspecified severity; E11.51 Type 2 diabetes mellitus with diabetic peripheral angiopathy without gangrene; E11.22 Type 2 diabetes mellitus with diabetic chronic kidney disease; N18.3 Chronic kidney disease, stage 3 (moderate); I21.09 ST elevation (STEMI) myocardial infarction involving other coronary artery of anterior wall; I10 Essential (primary) hypertension; I27.20 Pulmonary hypertension, unspecified; D63.1 Anemia in chronic kidney disease; E43 Unspecified severe protein-calorie malnutrition; Z79.2 Long term (current) use of antibiotics; Z79.82 Long term (current) use of aspirin; Z79.02 Long term (current) use of antithrombotics/antiplatelets; Z79.4 Long term (current) use of insulin; Z79.899 Other long term (current) drug therapy; Z88.8 Allergy status to other drugs, medicaments and biological substances; Z89.432 Acquired absence of left foot; Z95.5 Presence of coronary angioplasty implant and graft
CPT/HCPCS: 96365; J0696; J2997

== ENCOUNTER 2019-03-08 00:12 | Day surgery (SDC) | payer OTHER ==
[~2019-03-08 00:12] MED LIST changes: +Rocephin 1g1 G/50 ML IV
[2019-03-08 11:35] LABS: BASOPHILS ABSOLUTE AUTO 0.09 K/mm3 (0.00-0.23); BASOPHILS PERCENT AUTO 1 % (0-2); EOSINOPHILS ABSOLUTE AUTO 0.38 K/mm3 (0.00-0.68); EOSINOPHILS PERCENT AUTO 4 % (0-6); Hematocrit 31.9 % (37.0-53.0); Hemoglobin 9.8 g/dL (13.5-17.5); IMMATURE GRAN ABSOLUTE AUTO 0.04 K/mm3 (0.00-0.10); IMMATURE GRAN PERCENT AUTO 1 % (0-1); LYMPHOCYTES ABSOLUTE AUTO 1.31 K/mm3 (0.84-5.20); LYMPHOCYTES PERCENT AUTO 15 % (21-46); MONOCYTES ABSOLUTE AUTO 0.53 K/mm3 (0.16-1.47); MONOCYTES PERCENT AUTO 6 % (4-13); Mean Corpuscular HGB Conc 30.7 g/dL (31.5-36.5); Mean Corpuscular Volume 94 fL (80-100); Mean Platelet Volume 9.7 fL (9.1-12.4); NEUTROPHILS ABSOLUTE AUTO 6.22 K/mm3 (1.96-9.15); NEUTROPHILS PERCENT AUTO 73 % (41-73); Platelet Count 270 K/mm3 (150-400); RDW Coefficient Variation 12.4 % (11.7-14.2); RDW Standard Deviation 42.7 fL (35.1-46.3); Red Blood Cell Count 3.38 M/mm3 (4.30-5.90); White Blood Cell Count 8.57 K/mm3 (4.00-11.30)
[2019-03-08 11:57] LABS: C-REACTIVE PROTEIN, EXT RANGE 1.27 mg/dL (0.000-0.300)
[2019-03-08 11:58] LABS: Bun/Creatinine Ratio 28.9 (12.0-20.0); Calcium, Blood 8.6 mg/dL (8.5-10.1); Creatinine, Blood 2.73 mg/dL (0.60-1.20); Potassium, Blood 4.8 mmol/L (3.5-5.5)
--- NOTE | 2019-03-08 12:02 | NUR ---
CLEAN CATCH UA SENT TODAY PER MD ORDER
[2019-03-08 12:17] LABS: Source, Urine Clean Catch
[2019-03-08 12:28] LABS: Bilirubin, Urine Neg (Neg); Blood, Urine Neg (Neg); Glucose Qualitative, Urine Neg (Neg); Ketones, Urine Neg (Neg); Leukocyte Esterase, Urine Neg (Neg); Nitrite, Urine Neg (Neg); Protein, Urine 2+ (Neg); Urobilinogen, Urine NORM (Normal)
[2019-03-08 12:47] LABS: Appearance, Urine Clear (Clear); Color, Urine Pale Yellow (P-Yellow)
[2019-03-08 12:49] LABS: Bacteria Few /hpf; Creatinine, Urine Random 44.2 mg/dL (27.00-270.00); Protein, Urine Random 32.8 mg/dL (0.0-11.9); Protein/Creat Ratio, Ur Random 0.7; Red Blood Cells, Urine 0-2 /hpf (0-2); Squamous Epithelial Cells Rare /hpf (Few); White Blood Cells, Urine 0-2 /hpf (0-5)
[2019-03-08 12:54] LABS: Yeast/Fungi Urine Rare /hpf
[2019-03-08 13:26] LABS: Eosinophils-Raw #,Urine 0
[2019-03-08 13:28] LABS: White Blood Cells Urine 0-2 /hpf (0-5)
--- NOTE | 2019-03-08 14:25 | NUR ---
LAB RESULTS FAXED TO ORDERING MD.
== END 2019-03-08 11:59 | disposition home or self-care (01) ==
LOC: ATC 00:12
DX: A41.01 Sepsis due to Methicillin susceptible Staphylococcus aureus (principal); E11.69 Type 2 diabetes mellitus with other specified complication; M86.672 Other chronic osteomyelitis, left ankle and foot; E11.621 Type 2 diabetes mellitus with foot ulcer; L97.529 Non-pressure chronic ulcer of other part of left foot with unspecified severity; E11.51 Type 2 diabetes mellitus with diabetic peripheral angiopathy without gangrene; E11.22 Type 2 diabetes mellitus with diabetic chronic kidney disease; N18.3 Chronic kidney disease, stage 3 (moderate); D63.1 Anemia in chronic kidney disease; I25.10 Atherosclerotic heart disease of native coronary artery without angina pectoris; I10 Essential (primary) hypertension; I27.20 Pulmonary hypertension, unspecified; E43 Unspecified severe protein-calorie malnutrition; Z79.2 Long term (current) use of antibiotics; Z79.82 Long term (current) use of aspirin; Z79.4 Long term (current) use of insulin; Z79.02 Long term (current) use of antithrombotics/antiplatelets; Z79.899 Other long term (current) drug therapy; Z88.8 Allergy status to other drugs, medicaments and biological substances; Z89.432 Acquired absence of left foot; Z95.5 Presence of coronary angioplasty implant and graft
CPT/HCPCS: 80048; 81001; 82570; 84156; 84300; 85025; 86140; 87205; 99211; J0696

== ENCOUNTER 2019-03-09 00:12 | Day surgery (SDC) | payer OTHER | END 2019-03-09 15:40 | disposition home or self-care (01) | LOC: ATC 00:12 | DX: A41.01 Sepsis due to Methicillin susceptible Staphylococcus aureus (principal); E11.69 Type 2 diabetes mellitus with other specified complication; M86.672 Other chronic osteomyelitis, left ankle and foot; E11.621 Type 2 diabetes mellitus with foot ulcer; L97.529 Non-pressure chronic ulcer of other part of left foot with unspecified severity; E11.51 Type 2 diabetes mellitus with diabetic peripheral angiopathy without gangrene; E11.22 Type 2 diabetes mellitus with diabetic chronic kidney disease; N18.3 Chronic kidney disease, stage 3 (moderate); D63.1 Anemia in chronic kidney disease; I25.10 Atherosclerotic heart disease of native coronary artery without angina pectoris; I10 Essential (primary) hypertension; I27.20 Pulmonary hypertension, unspecified; E43 Unspecified severe protein-calorie malnutrition; Z79.2 Long term (current) use of antibiotics; Z79.82 Long term (current) use of aspirin; Z79.4 Long term (current) use of insulin; Z79.02 Long term (current) use of antithrombotics/antiplatelets; Z79.899 Other long term (current) drug therapy; Z88.8 Allergy status to other drugs, medicaments and biological substances; Z89.432 Acquired absence of left foot; Z95.5 Presence of coronary angioplasty implant and graft | CPT/HCPCS: 96365; J0696 ==

== ENCOUNTER 2019-03-09 00:24 | Day surgery (SDC) | payer OTHER | END 2019-03-09 22:48 | disposition home or self-care (01) | LOC: WOUND 00:24 | DX: E11.621 Type 2 diabetes mellitus with foot ulcer (principal); E11.40 Type 2 diabetes mellitus with diabetic neuropathy, unspecified; L97.522 Non-pressure chronic ulcer of other part of left foot with fat layer exposed; L89.892 Pressure ulcer of other site, stage 2; E11.22 Type 2 diabetes mellitus with diabetic chronic kidney disease; E78.5 Hyperlipidemia, unspecified; I12.9 Hypertensive chronic kidney disease with stage 1 through stage 4 chronic kidney disease, or unspecified chronic kidney disease; N18.9 Chronic kidney disease, unspecified; I25.2 Old myocardial infarction; Z79.82 Long term (current) use of aspirin; Z79.02 Long term (current) use of antithrombotics/antiplatelets; Z79.4 Long term (current) use of insulin ==

== ENCOUNTER 2019-03-10 00:18 | Day surgery (SDC) | payer OTHER | END 2019-03-10 11:32 | disposition home or self-care (01) | LOC: ATC 00:18 | DX: A41.01 Sepsis due to Methicillin susceptible Staphylococcus aureus (principal); E11.69 Type 2 diabetes mellitus with other specified complication; M86.672 Other chronic osteomyelitis, left ankle and foot; E11.621 Type 2 diabetes mellitus with foot ulcer; L97.529 Non-pressure chronic ulcer of other part of left foot with unspecified severity; E11.51 Type 2 diabetes mellitus with diabetic peripheral angiopathy without gangrene; E11.22 Type 2 diabetes mellitus with diabetic chronic kidney disease; N18.3 Chronic kidney disease, stage 3 (moderate); D63.1 Anemia in chronic kidney disease; I25.10 Atherosclerotic heart disease of native coronary artery without angina pectoris; I10 Essential (primary) hypertension; I27.20 Pulmonary hypertension, unspecified; E43 Unspecified severe protein-calorie malnutrition; Z79.2 Long term (current) use of antibiotics; Z79.82 Long term (current) use of aspirin; Z79.4 Long term (current) use of insulin; Z79.02 Long term (current) use of antithrombotics/antiplatelets; Z79.899 Other long term (current) drug therapy; Z88.8 Allergy status to other drugs, medicaments and biological substances; Z89.432 Acquired absence of left foot; Z95.5 Presence of coronary angioplasty implant and graft | CPT/HCPCS: 96365; J0696 ==

== ENCOUNTER 2019-03-11 00:09 | Day surgery (SDC) | payer OTHER | END 2019-03-11 11:20 | disposition home or self-care (01) | LOC: ATC 00:09 | DX: A41.01 Sepsis due to Methicillin susceptible Staphylococcus aureus (principal); E11.69 Type 2 diabetes mellitus with other specified complication; M86.672 Other chronic osteomyelitis, left ankle and foot; E11.621 Type 2 diabetes mellitus with foot ulcer; L97.529 Non-pressure chronic ulcer of other part of left foot with unspecified severity; E11.51 Type 2 diabetes mellitus with diabetic peripheral angiopathy without gangrene; E11.22 Type 2 diabetes mellitus with diabetic chronic kidney disease; N18.3 Chronic kidney disease, stage 3 (moderate); D63.1 Anemia in chronic kidney disease; I25.10 Atherosclerotic heart disease of native coronary artery without angina pectoris; I10 Essential (primary) hypertension; I27.20 Pulmonary hypertension, unspecified; E43 Unspecified severe protein-calorie malnutrition; Z79.2 Long term (current) use of antibiotics; Z79.82 Long term (current) use of aspirin; Z79.4 Long term (current) use of insulin; Z79.02 Long term (current) use of antithrombotics/antiplatelets; Z79.899 Other long term (current) drug therapy; Z88.8 Allergy status to other drugs, medicaments and biological substances; Z89.432 Acquired absence of left foot; Z95.5 Presence of coronary angioplasty implant and graft | CPT/HCPCS: 96365; J0696 ==

== ENCOUNTER 2019-03-15 00:16 | Day surgery (SDC) | payer OTHER | END 2019-03-15 23:17 | disposition home or self-care (01) | LOC: WOUND 00:16 | DX: E11.621 Type 2 diabetes mellitus with foot ulcer (principal); E11.22 Type 2 diabetes mellitus with diabetic chronic kidney disease; E11.40 Type 2 diabetes mellitus with diabetic neuropathy, unspecified; L97.522 Non-pressure chronic ulcer of other part of left foot with fat layer exposed; L89.892 Pressure ulcer of other site, stage 2; E78.5 Hyperlipidemia, unspecified; I12.9 Hypertensive chronic kidney disease with stage 1 through stage 4 chronic kidney disease, or unspecified chronic kidney disease; N18.9 Chronic kidney disease, unspecified; D63.1 Anemia in chronic kidney disease; Z79.899 Other long term (current) drug therapy; Z79.4 Long term (current) use of insulin ==

== ENCOUNTER 2019-03-23 00:14 | Day surgery (SDC) | payer OTHER | END 2019-03-23 22:58 | disposition home or self-care (01) | LOC: WOUND 00:14 | DX: E11.621 Type 2 diabetes mellitus with foot ulcer (principal); E11.40 Type 2 diabetes mellitus with diabetic neuropathy, unspecified; E11.22 Type 2 diabetes mellitus with diabetic chronic kidney disease; I12.9 Hypertensive chronic kidney disease with stage 1 through stage 4 chronic kidney disease, or unspecified chronic kidney disease; N18.9 Chronic kidney disease, unspecified; E78.5 Hyperlipidemia, unspecified; L97.522 Non-pressure chronic ulcer of other part of left foot with fat layer exposed; L89.892 Pressure ulcer of other site, stage 2; Z79.899 Other long term (current) drug therapy; Z79.02 Long term (current) use of antithrombotics/antiplatelets; Z79.4 Long term (current) use of insulin ==

== ENCOUNTER 2019-03-29 00:26 | Day surgery (SDC) | payer OTHER | END 2019-03-29 23:17 | disposition home or self-care (01) | LOC: WOUND 00:26 | DX: E11.621 Type 2 diabetes mellitus with foot ulcer (principal); E11.22 Type 2 diabetes mellitus with diabetic chronic kidney disease; E11.40 Type 2 diabetes mellitus with diabetic neuropathy, unspecified; I12.9 Hypertensive chronic kidney disease with stage 1 through stage 4 chronic kidney disease, or unspecified chronic kidney disease; E78.5 Hyperlipidemia, unspecified; L97.522 Non-pressure chronic ulcer of other part of left foot with fat layer exposed; L89.892 Pressure ulcer of other site, stage 2; Z89.422 Acquired absence of other left toe(s); Z79.82 Long term (current) use of aspirin; Z79.02 Long term (current) use of antithrombotics/antiplatelets; Z79.4 Long term (current) use of insulin ==

== ENCOUNTER → 2019-04-06 | Day surgery (SDC) | payer OTHER | LOC: WOUND 00:15 | DX: E11.621 Type 2 diabetes mellitus with foot ulcer (principal); E11.22 Type 2 diabetes mellitus with diabetic chronic kidney disease; L97.422 Non-pressure chronic ulcer of left heel and midfoot with fat layer exposed; E11.40 Type 2 diabetes mellitus with diabetic neuropathy, unspecified; I12.9 Hypertensive chronic kidney disease with stage 1 through stage 4 chronic kidney disease, or unspecified chronic kidney disease; N18.9 Chronic kidney disease, unspecified; E78.5 Hyperlipidemia, unspecified; L89.892 Pressure ulcer of other site, stage 2; Z79.82 Long term (current) use of aspirin; Z79.899 Other long term (current) drug therapy; Z79.02 Long term (current) use of antithrombotics/antiplatelets; Z79.4 Long term (current) use of insulin ==

== ENCOUNTER 2019-04-23 01:45 | Day surgery (SDC) | payer OTHER | END 2019-04-23 23:25 | disposition home or self-care (01) | LOC: WOUND 01:45 | DX: E11.621 Type 2 diabetes mellitus with foot ulcer (principal); L97.422 Non-pressure chronic ulcer of left heel and midfoot with fat layer exposed; I12.9 Hypertensive chronic kidney disease with stage 1 through stage 4 chronic kidney disease, or unspecified chronic kidney disease; E11.22 Type 2 diabetes mellitus with diabetic chronic kidney disease; N18.9 Chronic kidney disease, unspecified; E11.40 Type 2 diabetes mellitus with diabetic neuropathy, unspecified; E78.5 Hyperlipidemia, unspecified; L89.892 Pressure ulcer of other site, stage 2; Z79.899 Other long term (current) drug therapy; Z79.82 Long term (current) use of aspirin; Z79.02 Long term (current) use of antithrombotics/antiplatelets; Z79.4 Long term (current) use of insulin | CPT/HCPCS: Q4196 ==

== ENCOUNTER 2019-04-29 00:28 | Day surgery (SDC) | payer OTHER | END 2019-04-29 22:57 | disposition home or self-care (01) | LOC: WOUND 00:28 | DX: E11.621 Type 2 diabetes mellitus with foot ulcer (principal); L97.522 Non-pressure chronic ulcer of other part of left foot with fat layer exposed; L89.892 Pressure ulcer of other site, stage 2; E11.40 Type 2 diabetes mellitus with diabetic neuropathy, unspecified; E11.22 Type 2 diabetes mellitus with diabetic chronic kidney disease; I12.9 Hypertensive chronic kidney disease with stage 1 through stage 4 chronic kidney disease, or unspecified chronic kidney disease; N18.9 Chronic kidney disease, unspecified; E78.5 Hyperlipidemia, unspecified; I25.2 Old myocardial infarction; D50.9 Iron deficiency anemia, unspecified; Z95.5 Presence of coronary angioplasty implant and graft ==

== ENCOUNTER 2019-07-01 00:16 | Day surgery (SDC) | payer OTHER | END 2019-07-01 23:53 | disposition home or self-care (01) | LOC: WOUND 00:16 | DX: E11.621 Type 2 diabetes mellitus with foot ulcer (principal); E11.40 Type 2 diabetes mellitus with diabetic neuropathy, unspecified; L97.522 Non-pressure chronic ulcer of other part of left foot with fat layer exposed; E11.22 Type 2 diabetes mellitus with diabetic chronic kidney disease; N18.9 Chronic kidney disease, unspecified; I10 Essential (primary) hypertension; E78.5 Hyperlipidemia, unspecified; Z79.02 Long term (current) use of antithrombotics/antiplatelets; Z79.899 Other long term (current) drug therapy; Z79.4 Long term (current) use of insulin | CPT/HCPCS: G0463 ==

== ENCOUNTER 2019-07-08 00:14 | Day surgery (SDC) | payer OTHER | END 2019-07-08 23:26 | disposition home or self-care (01) | LOC: WOUND 00:14 | DX: E11.621 Type 2 diabetes mellitus with foot ulcer (principal); L97.522 Non-pressure chronic ulcer of other part of left foot with fat layer exposed; E11.22 Type 2 diabetes mellitus with diabetic chronic kidney disease; E11.40 Type 2 diabetes mellitus with diabetic neuropathy, unspecified; E78.5 Hyperlipidemia, unspecified; I12.9 Hypertensive chronic kidney disease with stage 1 through stage 4 chronic kidney disease, or unspecified chronic kidney disease; N18.9 Chronic kidney disease, unspecified; Z79.899 Other long term (current) drug therapy; Z79.02 Long term (current) use of antithrombotics/antiplatelets; Z79.4 Long term (current) use of insulin ==

== ENCOUNTER 2019-07-22 00:13 | Day surgery (SDC) | payer OTHER | END 2019-07-22 23:22 | disposition home or self-care (01) | LOC: WOUND 00:13 | DX: L97.522 Non-pressure chronic ulcer of other part of left foot with fat layer exposed (principal); E08.40 Diabetes mellitus due to underlying condition with diabetic neuropathy, unspecified; I12.9 Hypertensive chronic kidney disease with stage 1 through stage 4 chronic kidney disease, or unspecified chronic kidney disease; N18.9 Chronic kidney disease, unspecified; E78.5 Hyperlipidemia, unspecified; Z95.5 Presence of coronary angioplasty implant and graft; Z89.432 Acquired absence of left foot ==

== ENCOUNTER 2019-07-29 00:36 | Day surgery (SDC) | payer OTHER | END 2019-07-29 22:47 | disposition home or self-care (01) | LOC: WOUND 00:36 | DX: L97.522 Non-pressure chronic ulcer of other part of left foot with fat layer exposed (principal); E08.40 Diabetes mellitus due to underlying condition with diabetic neuropathy, unspecified; I12.0 Hypertensive chronic kidney disease with stage 5 chronic kidney disease or end stage renal disease; N18.6 End stage renal disease; E78.5 Hyperlipidemia, unspecified; Z89.422 Acquired absence of other left toe(s); I25.2 Old myocardial infarction; Z95.5 Presence of coronary angioplasty implant and graft | CPT/HCPCS: G0463 ==

== ENCOUNTER 2020-11-20 05:46 | Day surgery (SDC) | payer OTHER | END 2020-11-20 23:28 | disposition home or self-care (01) | LOC: WOUND 05:46 | DX: E11.621 Type 2 diabetes mellitus with foot ulcer (principal); L97.525 Non-pressure chronic ulcer of other part of left foot with muscle involvement without evidence of necrosis; E11.40 Type 2 diabetes mellitus with diabetic neuropathy, unspecified; I12.9 Hypertensive chronic kidney disease with stage 1 through stage 4 chronic kidney disease, or unspecified chronic kidney disease; N18.9 Chronic kidney disease, unspecified; E11.22 Type 2 diabetes mellitus with diabetic chronic kidney disease; E78.5 Hyperlipidemia, unspecified; I25.2 Old myocardial infarction; Z95.5 Presence of coronary angioplasty implant and graft; Z88.8 Allergy status to other drugs, medicaments and biological substances | CPT/HCPCS: A9270 ==

== ENCOUNTER 2020-11-28 01:20 | Day surgery (SDC) | payer OTHER | END 2020-11-28 23:05 | disposition home or self-care (01) | LOC: WOUND 01:20 | DX: E11.621 Type 2 diabetes mellitus with foot ulcer (principal); L97.525 Non-pressure chronic ulcer of other part of left foot with muscle involvement without evidence of necrosis; E11.40 Type 2 diabetes mellitus with diabetic neuropathy, unspecified; I12.9 Hypertensive chronic kidney disease with stage 1 through stage 4 chronic kidney disease, or unspecified chronic kidney disease; N18.9 Chronic kidney disease, unspecified; E78.5 Hyperlipidemia, unspecified; I25.2 Old myocardial infarction; Z95.5 Presence of coronary angioplasty implant and graft; Z88.8 Allergy status to other drugs, medicaments and biological substances | CPT/HCPCS: G0463 ==

== ENCOUNTER 2020-12-05 03:19 | Day surgery (SDC) | payer OTHER | END 2020-12-05 12:00 | disposition home or self-care (01) | LOC: WOUND 03:19 | PROC: 0JBR0ZZ Excision of Left Foot Subcutaneous Tissue and Fascia, Open Approach (ICD-10-PCS; principal; 2020-12-05) | DX: E11.621 Type 2 diabetes mellitus with foot ulcer (principal); L97.522 Non-pressure chronic ulcer of other part of left foot with fat layer exposed; I70.202 Unspecified atherosclerosis of native arteries of extremities, left leg; Z95.820 Peripheral vascular angioplasty status with implants and grafts | CPT/HCPCS: A9270 ==

== ENCOUNTER 2020-12-12 04:48 | Day surgery (SDC) | payer OTHER | END 2020-12-12 22:45 | disposition home or self-care (01) | LOC: WOUND 04:48 | DX: E11.621 Type 2 diabetes mellitus with foot ulcer (principal); L97.525 Non-pressure chronic ulcer of other part of left foot with muscle involvement without evidence of necrosis; I12.9 Hypertensive chronic kidney disease with stage 1 through stage 4 chronic kidney disease, or unspecified chronic kidney disease; N18.9 Chronic kidney disease, unspecified; E11.22 Type 2 diabetes mellitus with diabetic chronic kidney disease; E11.40 Type 2 diabetes mellitus with diabetic neuropathy, unspecified; E78.5 Hyperlipidemia, unspecified; I25.2 Old myocardial infarction; Z89.422 Acquired absence of other left toe(s); Z95.5 Presence of coronary angioplasty implant and graft; Z88.1 Allergy status to other antibiotic agents | CPT/HCPCS: G0463 ==

== ENCOUNTER 2020-12-26 01:40 | Day surgery (SDC) | payer OTHER | END 2020-12-26 22:46 | disposition home or self-care (01) | LOC: WOUND 01:40 | DX: E11.621 Type 2 diabetes mellitus with foot ulcer (principal); L97.525 Non-pressure chronic ulcer of other part of left foot with muscle involvement without evidence of necrosis; I70.202 Unspecified atherosclerosis of native arteries of extremities, left leg | CPT/HCPCS: A9270; G0463 ==

== ENCOUNTER 2021-01-02 03:29 | Day surgery (SDC) | payer OTHER | END 2021-01-02 23:40 | disposition home or self-care (01) | LOC: WOUND 03:29 | PROC: 0JBR0ZZ Excision of Left Foot Subcutaneous Tissue and Fascia, Open Approach (ICD-10-PCS; principal; 2021-01-02) | DX: E11.51 Type 2 diabetes mellitus with diabetic peripheral angiopathy without gangrene (principal); L97.522 Non-pressure chronic ulcer of other part of left foot with fat layer exposed; I70.25 Atherosclerosis of native arteries of other extremities with ulceration | CPT/HCPCS: A9270 ==

== ENCOUNTER 2021-01-05 05:20 | Day surgery (SDC) | payer OTHER | END 2021-01-05 23:00 | disposition home or self-care (01) | LOC: WOUND 05:20 | DX: E11.621 Type 2 diabetes mellitus with foot ulcer (principal); L97.525 Non-pressure chronic ulcer of other part of left foot with muscle involvement without evidence of necrosis; E11.22 Type 2 diabetes mellitus with diabetic chronic kidney disease; I70.202 Unspecified atherosclerosis of native arteries of extremities, left leg; E11.40 Type 2 diabetes mellitus with diabetic neuropathy, unspecified; I12.9 Hypertensive chronic kidney disease with stage 1 through stage 4 chronic kidney disease, or unspecified chronic kidney disease; N18.9 Chronic kidney disease, unspecified; E11.622 Type 2 diabetes mellitus with other skin ulcer; E78.5 Hyperlipidemia, unspecified; I25.2 Old myocardial infarction; Z95.5 Presence of coronary angioplasty implant and graft | CPT/HCPCS: A9270 ==

== ENCOUNTER 2021-01-09 05:36 | Day surgery (SDC) | payer OTHER | END 2021-01-09 22:51 | disposition home or self-care (01) | LOC: WOUND 05:36 | DX: L97.525 Non-pressure chronic ulcer of other part of left foot with muscle involvement without evidence of necrosis (principal); I70.202 Unspecified atherosclerosis of native arteries of extremities, left leg; E08.40 Diabetes mellitus due to underlying condition with diabetic neuropathy, unspecified ==

== ENCOUNTER 2021-01-16 03:08 | Day surgery (SDC) | payer OTHER | END 2021-01-16 23:13 | disposition home or self-care (01) | LOC: WOUND | DX: E11.621 Type 2 diabetes mellitus with foot ulcer (principal); L97.525 Non-pressure chronic ulcer of other part of left foot with muscle involvement without evidence of necrosis ==

== ENCOUNTER 2021-01-24 00:26 | Day surgery (SDC) | payer OTHER | END 2021-01-24 23:26 | disposition home or self-care (01) | LOC: WOUND 00:26 | PROC: XHRPXF7 Replacement of Skin with Bioengineered Allogeneic Construct, External Approach, New Technology Group 7 (ICD-10-PCS; principal; 2021-01-24) | DX: E11.51 Type 2 diabetes mellitus with diabetic peripheral angiopathy without gangrene (principal); I70.248 Atherosclerosis of native arteries of left leg with ulceration of other part of lower leg; E11.621 Type 2 diabetes mellitus with foot ulcer; L97.525 Non-pressure chronic ulcer of other part of left foot with muscle involvement without evidence of necrosis; I12.9 Hypertensive chronic kidney disease with stage 1 through stage 4 chronic kidney disease, or unspecified chronic kidney disease; N18.30 Chronic kidney disease, stage 3 unspecified; E11.22 Type 2 diabetes mellitus with diabetic chronic kidney disease; E11.40 Type 2 diabetes mellitus with diabetic neuropathy, unspecified; E78.5 Hyperlipidemia, unspecified; I25.2 Old myocardial infarction; Z95.5 Presence of coronary angioplasty implant and graft; Z89.422 Acquired absence of other left toe(s) | CPT/HCPCS: A9270; Q4133 ==

== ENCOUNTER 2021-01-30 01:17 | Day surgery (SDC) | payer OTHER | END 2021-01-30 23:06 | disposition home or self-care (01) | LOC: WOUND 01:17 | DX: E11.621 Type 2 diabetes mellitus with foot ulcer (principal); L97.525 Non-pressure chronic ulcer of other part of left foot with muscle involvement without evidence of necrosis; L89.893 Pressure ulcer of other site, stage 3 | CPT/HCPCS: Q4133 ==

== ENCOUNTER 2021-02-06 04:24 | Day surgery (SDC) | payer OTHER | END 2021-02-06 12:00 | disposition home or self-care (01) | LOC: WOUND 04:24 | DX: E11.621 Type 2 diabetes mellitus with foot ulcer (principal); L97.522 Non-pressure chronic ulcer of other part of left foot with fat layer exposed; E11.40 Type 2 diabetes mellitus with diabetic neuropathy, unspecified; E11.51 Type 2 diabetes mellitus with diabetic peripheral angiopathy without gangrene; I70.202 Unspecified atherosclerosis of native arteries of extremities, left leg | CPT/HCPCS: A9270 ==

== ENCOUNTER 2021-02-12 03:40 | Day surgery (SDC) | payer OTHER | END 2021-02-12 12:00 | disposition home or self-care (01) | LOC: WOUND 03:40 | DX: L97.522 Non-pressure chronic ulcer of other part of left foot with fat layer exposed (principal); E08.40 Diabetes mellitus due to underlying condition with diabetic neuropathy, unspecified; I70.202 Unspecified atherosclerosis of native arteries of extremities, left leg | CPT/HCPCS: G0463 ==

== ENCOUNTER 2021-02-20 02:24 | Day surgery (SDC) | payer MEDICARE | END 2021-02-20 23:16 | disposition home or self-care (01) | LOC: WOUND 02:24 | DX: E11.621 Type 2 diabetes mellitus with foot ulcer (principal); L97.525 Non-pressure chronic ulcer of other part of left foot with muscle involvement without evidence of necrosis; L89.893 Pressure ulcer of other site, stage 3; I70.202 Unspecified atherosclerosis of native arteries of extremities, left leg; E11.40 Type 2 diabetes mellitus with diabetic neuropathy, unspecified; E11.51 Type 2 diabetes mellitus with diabetic peripheral angiopathy without gangrene ==

== ENCOUNTER 2021-02-27 04:16 | Day surgery (SDC) | payer MEDICARE | END 2021-02-27 23:08 | disposition home or self-care (01) | LOC: WOUND 04:16 | DX: E11.621 Type 2 diabetes mellitus with foot ulcer (principal); L97.525 Non-pressure chronic ulcer of other part of left foot with muscle involvement without evidence of necrosis | CPT/HCPCS: A9270 ==

== ENCOUNTER 2021-03-06 05:51 | Day surgery (SDC) | payer MEDICARE | END 2021-03-06 22:44 | disposition home or self-care (01) | LOC: WOUND 05:51 | DX: E11.621 Type 2 diabetes mellitus with foot ulcer (principal); L97.525 Non-pressure chronic ulcer of other part of left foot with muscle involvement without evidence of necrosis; L89.893 Pressure ulcer of other site, stage 3; I70.202 Unspecified atherosclerosis of native arteries of extremities, left leg | CPT/HCPCS: A9270 ==

== ENCOUNTER 2021-03-12 12:05 | Day surgery (SDC) | payer MEDICARE | END 2021-03-12 23:32 | disposition home or self-care (01) | LOC: WOUND 12:05 | DX: E11.621 Type 2 diabetes mellitus with foot ulcer (principal); L97.525 Non-pressure chronic ulcer of other part of left foot with muscle involvement without evidence of necrosis; E11.622 Type 2 diabetes mellitus with other skin ulcer; L97.822 Non-pressure chronic ulcer of other part of left lower leg with fat layer exposed; E11.51 Type 2 diabetes mellitus with diabetic peripheral angiopathy without gangrene; I70.202 Unspecified atherosclerosis of native arteries of extremities, left leg; I12.9 Hypertensive chronic kidney disease with stage 1 through stage 4 chronic kidney disease, or unspecified chronic kidney disease; E11.22 Type 2 diabetes mellitus with diabetic chronic kidney disease; N18.9 Chronic kidney disease, unspecified; I25.2 Old myocardial infarction; E78.5 Hyperlipidemia, unspecified; Z89.422 Acquired absence of other left toe(s); Z95.5 Presence of coronary angioplasty implant and graft | CPT/HCPCS: A9270; G0463 ==

== ENCOUNTER 2021-03-19 03:20 | Day surgery (SDC) | payer MEDICARE | END 2021-03-19 23:43 | disposition home or self-care (01) | LOC: WOUND 03:20 | DX: L97.522 Non-pressure chronic ulcer of other part of left foot with fat layer exposed (principal); E08.40 Diabetes mellitus due to underlying condition with diabetic neuropathy, unspecified; I70.202 Unspecified atherosclerosis of native arteries of extremities, left leg | CPT/HCPCS: A9270; G0463 ==

== ENCOUNTER 2021-03-26 03:10 | Day surgery (SDC) | payer MEDICARE | END 2021-03-26 23:29 | disposition home or self-care (01) | LOC: WOUND 03:10 | DX: E11.621 Type 2 diabetes mellitus with foot ulcer (principal); L97.525 Non-pressure chronic ulcer of other part of left foot with muscle involvement without evidence of necrosis; E11.622 Type 2 diabetes mellitus with other skin ulcer; L97.822 Non-pressure chronic ulcer of other part of left lower leg with fat layer exposed; I12.9 Hypertensive chronic kidney disease with stage 1 through stage 4 chronic kidney disease, or unspecified chronic kidney disease; E11.22 Type 2 diabetes mellitus with diabetic chronic kidney disease; N18.9 Chronic kidney disease, unspecified; E11.40 Type 2 diabetes mellitus with diabetic neuropathy, unspecified; I70.202 Unspecified atherosclerosis of native arteries of extremities, left leg; Z95.828 Presence of other vascular implants and grafts | CPT/HCPCS: A9270; G0463 ==

== ENCOUNTER 2021-04-09 01:40 | Day surgery (SDC) | payer MEDICARE | END 2021-04-09 23:42 | disposition home or self-care (01) | LOC: WOUND 01:40 | DX: E11.621 Type 2 diabetes mellitus with foot ulcer (principal); L97.525 Non-pressure chronic ulcer of other part of left foot with muscle involvement without evidence of necrosis; E11.51 Type 2 diabetes mellitus with diabetic peripheral angiopathy without gangrene; I70.202 Unspecified atherosclerosis of native arteries of extremities, left leg; I12.9 Hypertensive chronic kidney disease with stage 1 through stage 4 chronic kidney disease, or unspecified chronic kidney disease; E11.40 Type 2 diabetes mellitus with diabetic neuropathy, unspecified; E11.22 Type 2 diabetes mellitus with diabetic chronic kidney disease; N18.9 Chronic kidney disease, unspecified; E78.5 Hyperlipidemia, unspecified; Z89.422 Acquired absence of other left toe(s); I25.2 Old myocardial infarction; Z95.5 Presence of coronary angioplasty implant and graft | CPT/HCPCS: G0463 ==

== ENCOUNTER 2021-04-23 05:52 | Day surgery (SDC) | payer MEDICARE | END 2021-04-23 23:32 | disposition home or self-care (01) | LOC: WOUND 05:52 | DX: E11.621 Type 2 diabetes mellitus with foot ulcer (principal); L97.525 Non-pressure chronic ulcer of other part of left foot with muscle involvement without evidence of necrosis; E11.40 Type 2 diabetes mellitus with diabetic neuropathy, unspecified; E11.51 Type 2 diabetes mellitus with diabetic peripheral angiopathy without gangrene; I70.202 Unspecified atherosclerosis of native arteries of extremities, left leg; I12.9 Hypertensive chronic kidney disease with stage 1 through stage 4 chronic kidney disease, or unspecified chronic kidney disease; E11.22 Type 2 diabetes mellitus with diabetic chronic kidney disease; N18.9 Chronic kidney disease, unspecified; E78.5 Hyperlipidemia, unspecified; I25.2 Old myocardial infarction; Z89.422 Acquired absence of other left toe(s); Z95.5 Presence of coronary angioplasty implant and graft | CPT/HCPCS: A9270; G0463 ==

== ENCOUNTER 2021-05-07 01:23 | Day surgery (SDC) | payer MEDICARE | END 2021-05-07 23:43 | disposition home or self-care (01) | LOC: WOUND 01:23 | DX: E11.621 Type 2 diabetes mellitus with foot ulcer (principal); L97.525 Non-pressure chronic ulcer of other part of left foot with muscle involvement without evidence of necrosis; E11.40 Type 2 diabetes mellitus with diabetic neuropathy, unspecified; E11.51 Type 2 diabetes mellitus with diabetic peripheral angiopathy without gangrene; I70.202 Unspecified atherosclerosis of native arteries of extremities, left leg; I12.9 Hypertensive chronic kidney disease with stage 1 through stage 4 chronic kidney disease, or unspecified chronic kidney disease; N18.9 Chronic kidney disease, unspecified; E11.22 Type 2 diabetes mellitus with diabetic chronic kidney disease | CPT/HCPCS: A9270; G0463 ==

== ENCOUNTER 2021-05-21 01:06 | Day surgery (SDC) | payer MEDICARE | END 2021-05-21 11:59 | disposition home or self-care (01) | LOC: WOUND 01:06 | DX: E11.621 Type 2 diabetes mellitus with foot ulcer (principal); L97.522 Non-pressure chronic ulcer of other part of left foot with fat layer exposed; E11.51 Type 2 diabetes mellitus with diabetic peripheral angiopathy without gangrene; I70.202 Unspecified atherosclerosis of native arteries of extremities, left leg; E11.40 Type 2 diabetes mellitus with diabetic neuropathy, unspecified; E11.22 Type 2 diabetes mellitus with diabetic chronic kidney disease; I12.9 Hypertensive chronic kidney disease with stage 1 through stage 4 chronic kidney disease, or unspecified chronic kidney disease; N18.9 Chronic kidney disease, unspecified; E78.5 Hyperlipidemia, unspecified; I25.2 Old myocardial infarction; Z89.422 Acquired absence of other left toe(s); Z95.5 Presence of coronary angioplasty implant and graft | CPT/HCPCS: A9270; G0463 ==

== ENCOUNTER 2021-06-04 01:52 | Day surgery (SDC) | payer MEDICARE | END 2021-06-04 22:55 | disposition home or self-care (01) | LOC: WOUND 01:52 | DX: E11.621 Type 2 diabetes mellitus with foot ulcer (principal); L97.522 Non-pressure chronic ulcer of other part of left foot with fat layer exposed; E11.22 Type 2 diabetes mellitus with diabetic chronic kidney disease; I12.9 Hypertensive chronic kidney disease with stage 1 through stage 4 chronic kidney disease, or unspecified chronic kidney disease; N18.9 Chronic kidney disease, unspecified; I70.202 Unspecified atherosclerosis of native arteries of extremities, left leg; Z95.5 Presence of coronary angioplasty implant and graft | CPT/HCPCS: A9270 ==

== ENCOUNTER 2021-06-18 01:29 | Day surgery (SDC) | payer MEDICARE | END 2021-06-18 23:08 | disposition home or self-care (01) | LOC: WOUND 01:29 | DX: E11.621 Type 2 diabetes mellitus with foot ulcer (principal); L97.522 Non-pressure chronic ulcer of other part of left foot with fat layer exposed; I12.9 Hypertensive chronic kidney disease with stage 1 through stage 4 chronic kidney disease, or unspecified chronic kidney disease; E11.22 Type 2 diabetes mellitus with diabetic chronic kidney disease; N18.9 Chronic kidney disease, unspecified; E11.40 Type 2 diabetes mellitus with diabetic neuropathy, unspecified; E78.5 Hyperlipidemia, unspecified; I25.2 Old myocardial infarction; Z89.422 Acquired absence of other left toe(s) | CPT/HCPCS: G0463 ==

== ENCOUNTER 2021-07-02 01:23 | Day surgery (SDC) | payer MEDICARE | END 2021-07-02 23:18 | disposition home or self-care (01) | LOC: WOUND 01:23 | DX: E11.621 Type 2 diabetes mellitus with foot ulcer (principal); L97.522 Non-pressure chronic ulcer of other part of left foot with fat layer exposed; E11.51 Type 2 diabetes mellitus with diabetic peripheral angiopathy without gangrene; I70.202 Unspecified atherosclerosis of native arteries of extremities, left leg; E11.40 Type 2 diabetes mellitus with diabetic neuropathy, unspecified; I12.9 Hypertensive chronic kidney disease with stage 1 through stage 4 chronic kidney disease, or unspecified chronic kidney disease; N18.9 Chronic kidney disease, unspecified; E11.22 Type 2 diabetes mellitus with diabetic chronic kidney disease; E78.5 Hyperlipidemia, unspecified; I25.2 Old myocardial infarction; Z95.5 Presence of coronary angioplasty implant and graft | CPT/HCPCS: G0463 ==

== ENCOUNTER 2021-07-09 03:14 | Day surgery (SDC) | payer MEDICARE | END 2021-07-09 23:35 | disposition home or self-care (01) | LOC: WOUND 03:14 | DX: E11.621 Type 2 diabetes mellitus with foot ulcer (principal); L97.522 Non-pressure chronic ulcer of other part of left foot with fat layer exposed; E11.40 Type 2 diabetes mellitus with diabetic neuropathy, unspecified; E11.51 Type 2 diabetes mellitus with diabetic peripheral angiopathy without gangrene; I70.202 Unspecified atherosclerosis of native arteries of extremities, left leg; I12.9 Hypertensive chronic kidney disease with stage 1 through stage 4 chronic kidney disease, or unspecified chronic kidney disease; N18.9 Chronic kidney disease, unspecified; E11.22 Type 2 diabetes mellitus with diabetic chronic kidney disease; E78.5 Hyperlipidemia, unspecified; I25.2 Old myocardial infarction; Z95.5 Presence of coronary angioplasty implant and graft | CPT/HCPCS: G0463 ==

== ENCOUNTER 2021-07-23 01:14 | Day surgery (SDC) | payer MEDICARE | END 2021-07-23 23:32 | disposition home or self-care (01) | LOC: WOUND 01:14 | DX: E11.621 Type 2 diabetes mellitus with foot ulcer (principal); L97.522 Non-pressure chronic ulcer of other part of left foot with fat layer exposed; I12.9 Hypertensive chronic kidney disease with stage 1 through stage 4 chronic kidney disease, or unspecified chronic kidney disease; E11.22 Type 2 diabetes mellitus with diabetic chronic kidney disease; N18.9 Chronic kidney disease, unspecified; E11.40 Type 2 diabetes mellitus with diabetic neuropathy, unspecified; E78.5 Hyperlipidemia, unspecified; E11.51 Type 2 diabetes mellitus with diabetic peripheral angiopathy without gangrene; I70.202 Unspecified atherosclerosis of native arteries of extremities, left leg; I25.2 Old myocardial infarction; Z95.5 Presence of coronary angioplasty implant and graft; Z89.422 Acquired absence of other left toe(s) | CPT/HCPCS: A9270; G0463 ==

== ENCOUNTER 2021-08-06 08:00 | Day surgery (SDC) | payer MEDICARE | END 2021-08-06 23:59 | disposition home or self-care (01) | LOC: WOUND 08:00 | DX: E11.621 Type 2 diabetes mellitus with foot ulcer (principal); L97.522 Non-pressure chronic ulcer of other part of left foot with fat layer exposed; I70.202 Unspecified atherosclerosis of native arteries of extremities, left leg; E11.40 Type 2 diabetes mellitus with diabetic neuropathy, unspecified; I12.9 Hypertensive chronic kidney disease with stage 1 through stage 4 chronic kidney disease, or unspecified chronic kidney disease; N18.9 Chronic kidney disease, unspecified; E78.5 Hyperlipidemia, unspecified; I25.2 Old myocardial infarction; Z95.5 Presence of coronary angioplasty implant and graft ==

== ENCOUNTER 2021-08-27 00:36 | Day surgery (SDC) | payer MEDICARE ==
[~2021-08-27 00:36] MED LIST changes: +CENTRUM SILVER1 EAC2 PO; -MULVIT PO
== END 2021-08-27 23:49 | disposition home or self-care (01) ==
LOC: WOUND 00:36
DX: E11.621 Type 2 diabetes mellitus with foot ulcer (principal); L97.522 Non-pressure chronic ulcer of other part of left foot with fat layer exposed; E11.51 Type 2 diabetes mellitus with diabetic peripheral angiopathy without gangrene; I70.245 Atherosclerosis of native arteries of left leg with ulceration of other part of foot; I12.9 Hypertensive chronic kidney disease with stage 1 through stage 4 chronic kidney disease, or unspecified chronic kidney disease; E11.22 Type 2 diabetes mellitus with diabetic chronic kidney disease; N18.9 Chronic kidney disease, unspecified; E11.40 Type 2 diabetes mellitus with diabetic neuropathy, unspecified; E78.5 Hyperlipidemia, unspecified; I25.2 Old myocardial infarction; Z98.61 Coronary angioplasty status; Z89.422 Acquired absence of other left toe(s)
CPT/HCPCS: A9270

== ENCOUNTER 2021-09-10 05:34 | Day surgery (SDC) | payer MEDICARE ==
[~2021-09-10 05:34] MED LIST changes: -CENTRUM SILVER1 EAC2 PO; +MULVIT PO
== END 2021-09-10 23:32 | disposition home or self-care (01) ==
LOC: WOUND 05:34
DX: E11.621 Type 2 diabetes mellitus with foot ulcer (principal); L97.522 Non-pressure chronic ulcer of other part of left foot with fat layer exposed; D50.9 Iron deficiency anemia, unspecified; E11.40 Type 2 diabetes mellitus with diabetic neuropathy, unspecified; E11.51 Type 2 diabetes mellitus with diabetic peripheral angiopathy without gangrene; E11.22 Type 2 diabetes mellitus with diabetic chronic kidney disease; I12.9 Hypertensive chronic kidney disease with stage 1 through stage 4 chronic kidney disease, or unspecified chronic kidney disease; N18.9 Chronic kidney disease, unspecified; E78.5 Hyperlipidemia, unspecified; I70.202 Unspecified atherosclerosis of native arteries of extremities, left leg; Z95.5 Presence of coronary angioplasty implant and graft
CPT/HCPCS: G0463

== ENCOUNTER 2021-09-24 01:38 | Day surgery (SDC) | payer MEDICARE | END 2021-09-24 23:53 | disposition home or self-care (01) | LOC: WOUND 01:38 | DX: E11.621 Type 2 diabetes mellitus with foot ulcer (principal); L97.522 Non-pressure chronic ulcer of other part of left foot with fat layer exposed; E11.40 Type 2 diabetes mellitus with diabetic neuropathy, unspecified; E11.22 Type 2 diabetes mellitus with diabetic chronic kidney disease; E11.51 Type 2 diabetes mellitus with diabetic peripheral angiopathy without gangrene; I70.202 Unspecified atherosclerosis of native arteries of extremities, left leg; I12.9 Hypertensive chronic kidney disease with stage 1 through stage 4 chronic kidney disease, or unspecified chronic kidney disease; N18.9 Chronic kidney disease, unspecified; E78.5 Hyperlipidemia, unspecified; D50.9 Iron deficiency anemia, unspecified; L89.890 Pressure ulcer of other site, unstageable; Z95.5 Presence of coronary angioplasty implant and graft; Z89.422 Acquired absence of other left toe(s) | CPT/HCPCS: G0463 ==

== ENCOUNTER 2021-10-01 03:39 | Day surgery (SDC) | payer MEDICARE | END 2021-10-01 23:32 | disposition home or self-care (01) | LOC: WOUND 03:39 | DX: E11.621 Type 2 diabetes mellitus with foot ulcer (principal); L97.522 Non-pressure chronic ulcer of other part of left foot with fat layer exposed; E11.40 Type 2 diabetes mellitus with diabetic neuropathy, unspecified; I12.9 Hypertensive chronic kidney disease with stage 1 through stage 4 chronic kidney disease, or unspecified chronic kidney disease; E11.22 Type 2 diabetes mellitus with diabetic chronic kidney disease; N18.9 Chronic kidney disease, unspecified; E78.5 Hyperlipidemia, unspecified; Z95.5 Presence of coronary angioplasty implant and graft; D50.9 Iron deficiency anemia, unspecified; I70.202 Unspecified atherosclerosis of native arteries of extremities, left leg | CPT/HCPCS: G0463 ==

== ENCOUNTER 2021-10-10 08:23 | Day surgery (SDC) | payer MEDICARE ==
[~2021-10-10] VITALS: Ht 190.5 cm; Wt 103.4 kg
[2021-10-10] MEDS ORDERED: XARELTO20 MG PO (09:08)
[2021-10-10] MEDS ORDERED: TRULICITY1.5 MG/0.1 SC (09:09)
[2021-10-10] MEDS ORDERED: Crestor20 MG PO (09:10)
[2021-10-10] MEDS ORDERED: FERSU300 PO (09:11)
[2021-10-10] MEDS ORDERED: TORSE20 PO (09:11)
[2021-10-10] MEDS ORDERED: CARV3.125 PO (09:13)
--- NOTE | 2021-10-10 17:32 | NUR ---
patient and verbalized understanding of discharge instrucations and precautions. right peadl site dressing D&I. no bleeding no hematoma. left groin site dressing D&I, no hematoma, no bleeding. patient ambulated o rest room by self. tolerated well. IV site dced with catheter intact. no further questions. patient taken via wheelchair to car. driving.
== END 2021-10-10 23:48 | disposition home or self-care (01) ==
LOC: MHTC 08:23
DX: E11.51 Type 2 diabetes mellitus with diabetic peripheral angiopathy without gangrene (principal); I75.021 Atheroembolism of right lower extremity; I70.231 Atherosclerosis of native arteries of right leg with ulceration of thigh; I70.229 Atherosclerosis of native arteries of extremities with rest pain, unspecified extremity; E11.22 Type 2 diabetes mellitus with diabetic chronic kidney disease; I12.9 Hypertensive chronic kidney disease with stage 1 through stage 4 chronic kidney disease, or unspecified chronic kidney disease; N18.9 Chronic kidney disease, unspecified; I25.10 Atherosclerotic heart disease of native coronary artery without angina pectoris; E78.5 Hyperlipidemia, unspecified; D63.1 Anemia in chronic kidney disease; Z79.4 Long term (current) use of insulin; Z79.82 Long term (current) use of aspirin; Z88.8 Allergy status to other drugs, medicaments and biological substances
CPT/HCPCS: 36140; 37228; 37232; 75716; 75774; 76937; 85347; 99152; 99153; C1725; C1760; C1769; C1887; C1894; J1644; J2250; J3010; J7030; J7050; Q9967

== ENCOUNTER 2021-10-15 01:21 | Day surgery (SDC) | payer MEDICARE ==
[~2021-10-15 01:21] MED LIST changes: +CARV3.125 PO; +Crestor20 MG PO; +FERSU300 PO; +TORSE20 PO; +TRULICITY1.5 MG/0.1 SC; +XARELTO20 MG PO
== END 2021-10-15 23:24 | disposition home or self-care (01) ==
LOC: WOUND 01:21
DX: E11.621 Type 2 diabetes mellitus with foot ulcer (principal); E11.40 Type 2 diabetes mellitus with diabetic neuropathy, unspecified; E11.22 Type 2 diabetes mellitus with diabetic chronic kidney disease; E11.51 Type 2 diabetes mellitus with diabetic peripheral angiopathy without gangrene; I12.9 Hypertensive chronic kidney disease with stage 1 through stage 4 chronic kidney disease, or unspecified chronic kidney disease; E78.5 Hyperlipidemia, unspecified; I25.2 Old myocardial infarction; Z95.5 Presence of coronary angioplasty implant and graft; D50.9 Iron deficiency anemia, unspecified; L97.522 Non-pressure chronic ulcer of other part of left foot with fat layer exposed; I75.021 Atheroembolism of right lower extremity
CPT/HCPCS: A9270; G0463

== ENCOUNTER 2021-10-23 01:53 | Day surgery (SDC) | payer MEDICARE | END 2021-10-23 23:58 | disposition home or self-care (01) | LOC: WOUND 01:53 | DX: E11.621 Type 2 diabetes mellitus with foot ulcer (principal); L97.522 Non-pressure chronic ulcer of other part of left foot with fat layer exposed; E11.40 Type 2 diabetes mellitus with diabetic neuropathy, unspecified; E11.51 Type 2 diabetes mellitus with diabetic peripheral angiopathy without gangrene; I70.202 Unspecified atherosclerosis of native arteries of extremities, left leg; I75.021 Atheroembolism of right lower extremity; E11.21 Type 2 diabetes mellitus with diabetic nephropathy | CPT/HCPCS: G0463 ==

== ENCOUNTER 2021-10-30 01:54 | Day surgery (SDC) | payer MEDICARE | END 2021-10-30 23:18 | disposition home or self-care (01) | LOC: WOUND 01:54 | DX: E11.621 Type 2 diabetes mellitus with foot ulcer (principal); E11.40 Type 2 diabetes mellitus with diabetic neuropathy, unspecified; I70.202 Unspecified atherosclerosis of native arteries of extremities, left leg; E11.21 Type 2 diabetes mellitus with diabetic nephropathy; I75.021 Atheroembolism of right lower extremity; L97.422 Non-pressure chronic ulcer of left heel and midfoot with fat layer exposed; L97.512 Non-pressure chronic ulcer of other part of right foot with fat layer exposed | CPT/HCPCS: A9270; G0463 ==

== ENCOUNTER 2021-11-01 19:32 | Inpatient (IN) | payer MEDICARE ==
[~2021-11-01] VITALS: Ht 190.5 cm; Wt 104.1 kg
[~2021-11-01 19:32] MED LIST changes: +CENTRUM SILVER1 EAC2 PO; -MULVIT PO
[2021-11-01 20:10] LABS: BASOPHILS ABSOLUTE AUTO 0.06 K/mm3 (0.00-0.23); BASOPHILS PERCENT AUTO 1 % (0-2); EOSINOPHILS ABSOLUTE AUTO 0.02 K/mm3 (0.00-0.68); EOSINOPHILS PERCENT AUTO 0 % (0-6); Hematocrit 25.1 % (37.0-53.0); Hemoglobin 8.3 g/dL (13.5-17.5); IMMATURE GRAN ABSOLUTE AUTO 0.07 K/mm3 (0.00-0.10); IMMATURE GRAN PERCENT AUTO 1 % (0-1); LYMPHOCYTES ABSOLUTE AUTO 0.52 K/mm3 (0.84-5.20); LYMPHOCYTES PERCENT AUTO 4 % (21-46); MONOCYTES ABSOLUTE AUTO 0.73 K/mm3 (0.16-1.47); MONOCYTES PERCENT AUTO 6 % (4-13); Mean Corpuscular HGB 30.2 pg (26.0-34.0); Mean Corpuscular HGB Conc 33.1 g/dL (31.5-36.5); Mean Corpuscular Volume 91 fL (80-100); Mean Platelet Volume 8.6 fL (9.1-12.4); NEUTROPHILS ABSOLUTE AUTO 10.47 K/mm3 (1.96-9.15); NEUTROPHILS PERCENT AUTO 88 % (41-73); Platelet Count 320 K/mm3 (150-400); RDW Coefficient Variation 12.5 % (11.7-14.2); RDW Standard Deviation 41.5 fL (35.1-46.3); Red Blood Cell Count 2.75 M/mm3 (4.30-5.90); White Blood Cell Count 11.87 K/mm3 (4.00-11.30)
[2021-11-01 20:33] LABS: Albumin, Blood 2.7 g/dL (3.4-5.0); Albumin/Globulin Ratio 0.6 (0.8-1.8); Bilirubin, Total 0.5 mg/dL (0.1-1.0); Bun/Creatinine Ratio 18.6 (12.0-20.0); C-REACTIVE PROTEIN, EXT RANGE 11.6 mg/dL (0.000-0.300); Calcium, Blood 8.8 mg/dL (8.5-10.1); Creatinine, Blood 2.85 mg/dL (0.60-1.20); Globulin, Blood 4.9 g/dL (2.2-4.0); Potassium, Blood 5.1 mmol/L (3.5-5.5); Total Protein, Blood 7.6 g/dL (6.4-8.2)
[2021-11-01 20:42] LABS: Influenza A, PCR NEGATIVE (NEGATIVE); Influenza B, PCR NEGATIVE (NEGATIVE); Resp Syncytial Virus, PCR NEGATIVE (NEGATIVE)
[2021-11-01 21:22] LABS: SARS-Cov-2 (COVID-19) PCR, MMC POSITIVE (NEGATIVE)
[2021-11-01 22:27] LABS: Anti-Xa UFH, PHA Monitoring <0.10 IU/mL; International Normalized Ratio 1.18; Prothrombin Time Results 12.3 Sec (9.7-11.5)
[2021-11-01 23:45] LABS: CHOL/HDL RATIO 3.9; Cholesterol 139 mg/dL (50-200); Ferritin, Serum 903 ng/mL (26-388); HDL Cholesterol 36 mg/dL (>39); Iron Serum 20 ug/dL (65-175); LDL/HDL RATIO 2.2; Low Density Lipoprotein Chol 79 mg/dL (0-110); Percent Saturation 11.6 % (20.0-50.0); Total Iron Binding Capacity 173 ug/dL (250-450); Triglycerides 122 mg/dL (30-160); Very Low Density Lipoprot Chol 24 mg/dL (6-32)
--- NOTE | 2021-11-02 00:30 | NUR ---
ASSUMPTION OF CARE ASSUMED CARE OF THIS PT FROM ED AT 0025. PT TRANSFERRED OVER TO OTHER BED USING SLIDE SHEET. PT RECEIVED WEARING 3L NC, APPEARS TO BE BREATHING COMFORTABLY. PT HOOKED UP TO PT MONITORS AND PT NOTED TO BE IN NSR. PT LUNG SOUNDS ARE DIMINISHED AND SHALLOW. PT HAS NO COMPLAINTS OF CHEST PAIN AND HAS ANY OTHER CONCERNING CARDIAC ASSESSMENT FINDINGS. TROPONINS TRENDING. PT NOTED TO BE ON A HEPARIN GTT AT 15 UNITS THROUGH A 20G IN HIS RIGHT 20G PIV. PT IN HIS HOME PAJAMAS AND REFUSED CHANGING OF CLOTHES. PT TIRED AND STATES HE "JUST WANTS TO REST". ADMISSION COMPLETED WITH LIMITED RESPONSE FROM PT DESPITE ORIENTATION BEING APPROPRIATE. PT ENCOURAGED TO CALL OUT FOR ANY ASSISTANCE HE MAY NEED, VOIDING, ETC. PT ALSO NOTED TO HAVE SIGNIFICANT ESCHAR ON HIS RIGHT GREATER TOE AND 2ND TOE. PER ER CO WAS DUE TO SCHEDULE APPOINTMENT TO ADDRESS AMPUTATION. PT ADMINISTERED VANC, ZOSYN AND ROCEPHIN TO COVER IMPIRICALLY BY THE MEDICAL TEAM. WILL CONTINUE TO MONITOR.
[2021-11-02 01:59] LABS: BASOPHILS ABSOLUTE AUTO 0.04 K/mm3 (0.00-0.23); BASOPHILS PERCENT AUTO 0 % (0-2); EOSINOPHILS PERCENT AUTO 0 % (0-6); Hematocrit 23.7 % (37.0-53.0); Hemoglobin 7.9 g/dL (13.5-17.5); IMMATURE GRAN ABSOLUTE AUTO 0.13 K/mm3 (0.00-0.10); IMMATURE GRAN PERCENT AUTO 1 % (0-1); LYMPHOCYTES ABSOLUTE AUTO 0.62 K/mm3 (0.84-5.20); LYMPHOCYTES PERCENT AUTO 6 % (21-46); MONOCYTES ABSOLUTE AUTO 0.41 K/mm3 (0.16-1.47); MONOCYTES PERCENT AUTO 4 % (4-13); Mean Corpuscular HGB 31.1 pg (26.0-34.0); Mean Corpuscular HGB Conc 33.3 g/dL (31.5-36.5); Mean Corpuscular Volume 93 fL (80-100); Mean Platelet Volume 8.8 fL (9.1-12.4); NEUTROPHILS ABSOLUTE AUTO 8.88 K/mm3 (1.96-9.15); NEUTROPHILS PERCENT AUTO 88 % (41-73); Platelet Count 293 K/mm3 (150-400); RDW Coefficient Variation 12.5 % (11.7-14.2); RDW Standard Deviation 42.4 fL (35.1-46.3); Red Blood Cell Count 2.54 M/mm3 (4.30-5.90); White Blood Cell Count 10.08 K/mm3 (4.00-11.30)
[2021-11-02 02:07] LABS: Bun/Creatinine Ratio 19.5 (12.0-20.0); Calcium, Blood 8.3 mg/dL (8.5-10.1); Creatinine, Blood 2.77 mg/dL (0.60-1.20); Potassium, Blood 5.1 mmol/L (3.5-5.5)
--- NOTE | 2021-11-02 05:35 | NUR ---
SHIFT SUMMARY PT HAS RESTED WELL ON 3LNC THROUGHOUT THE NIGHT. SINCE ADMIT WITH NO COMPLAINTS OF CHEST PAIN, SHORTNESS OF BREATH OR DIAPHORESIS. PT HAS SLIGHT COUGH, BUT THIS CAN BE R/T COVID. TROP CH FROM BASELINE, TEAM AWARE. PT IS ON MEDICINE MANAGEMENT OF HEPARIN GTT AT 15 UNITS, WILL DOSE APPROPRIATELY WHEN ANTI-XA RESULTS. PT VITALS HAVE BEEN STABLE, NO FEVER REOCCURENCE. WILL CONTINUE TO MONITOR.
--- NOTE | 2021-11-02 12:10 | NUR ---
CONTACTED DR ABOUT PT BLOOD SUGAR COMING IN AT 286 AND THE REGULAR INSULIN BEING DISCONTINUED. THIS RN INFORMED DR THAT PT IS TO RECIEVE LONG ACTING INSULIN AND THAT THE SHORT ACTING WILL BE HELD UNTIL LATER IN THE DAY. DR APPROVED OF HOLDING A DOSE OF SHORT ACTING INSULIN ANTIL THE NEXT DOSE LONG PT WAS TO RECIEVE SOME LONG ACTING INSULIN. VICE PRESIDENT CONSULTING SERVICES INFORMED OF DR APPROVAL.
--- NOTE | 2021-11-02 15:27 | NUR ---
UPDATE PT LEFT FOR PROCEDURE AT 1520 VIA HOSPITAL BED AND OCCOMPANIED BY 1 [facility] RN. PT ON RA DURING TRANSPORT. PT CHART WITH HEART CENTER RN.
--- NOTE | 2021-11-02 18:11 | NUR ---
SHIFT SUMMARY PT A/0X4 AND COOPERATIVE OF CARE. VSS THROUGHOUT SHIFT WITH 02 SATS >90% ON RA. PT ON 3L NC AT BEGINNING OF SHIFT, OXYGEN TITRATED OFF, PT TOLERATED WELL. PT SEEN BY LOG WASHER FOR NSTEMI DIAGNOSIS, MEDICAL MANAGEMENT ORDERED. PT CONSULTED AGAIN BY SOWMYA FOR REVASC OF RIGHT FOOT. PT HAD REVASC PROCEDURE DONE TODAY, ZERO STENTS. PODIATRY CONSULTED AND SEEN PT TODAY. NO REPORT OF CHEST PAIN/PRESSURE THROUGHOUT SHIFT. NO REPORT OF SOB THROUGHOUT SHIFT. HEPARIN RESTARTED POST PROCEDURE AT 12U/KG/HR, PHARMACY AND DR DENG AWARE.
--- NOTE | 2021-11-02 20:05 | NUR ---
CALL TO DR. DENG REQUEST FOR DIRECTIONS REGARDING LENGTH OF BEDREST POST PROCEDURE. PER DR. DENG, BEDREST FOR 2 HOURS POST-PROCEDURE. EXISTING ORDER MODIFIED BY THIS RN TO INCLUDE SPECIFICATION OF 2 HOURS POST-PROCEDURE.
[2021-11-03 00:50] LABS: Hematocrit 22.3 % (37.0-53.0); Hemoglobin 7.4 g/dL (13.5-17.5); Mean Corpuscular HGB Conc 33.2 g/dL (31.5-36.5); Mean Corpuscular Volume 90 fL (80-100); Mean Platelet Volume 8.9 fL (9.1-12.4); Platelet Count 289 K/mm3 (150-400); RDW Coefficient Variation 12.5 % (11.7-14.2); RDW Standard Deviation 40.9 fL (35.1-46.3); Red Blood Cell Count 2.47 M/mm3 (4.30-5.90); White Blood Cell Count 13.31 K/mm3 (4.00-11.30)
[2021-11-03 01:04] LABS: Bun/Creatinine Ratio 24.1 (12.0-20.0); Calcium, Blood 8.1 mg/dL (8.5-10.1); Creatinine, Blood 2.45 mg/dL (0.60-1.20); Potassium, Blood 4.7 mmol/L (3.5-5.5)
--- NOTE | 2021-11-03 06:50 | NUR ---
PATIENT HAD A FAIRLY UNEVENTFUL NIGHT AND REPORTS HAVING SLEPT WELL, FEELS MORE RESTED THAN HE HAS IN A WEEK. CARDIAC CATHETERIZATION SITE IN LEFT FEMORAL WITH ANGIOSEAL. PT DENIES PAIN OR DISCOMFORT AT THE SITE. SITE IS FREE OF BRUISING, REDNESS AND HEMATOMA. DRESSING REMAINS CLEAN/DRY/INTACT. HEPARIN DRIP INFUSING AT 13 UNITS/KG/HOUR (27 mL). APTT WAS SUBTHERAPEUTIC WITH SAMPLE DRAW AT 00:31. NEXT APTT SCHEDULED FOR 08:00 THIS MORNING. UNASYN BEING ADMINISTERED Q12 HOURS DUE TO CONCERN FOR CELLULITIS TO RIGHT FOOT.
--- NOTE | 2021-11-03 17:17 | NUR ---
SHIFT SUMMARY PT REMAINS ALERT AND ORIENTED. BP STABLE. HR STABLE. PT DENIES ANY CP ALL SHIFT. O2 SATS HAVE BEEN ABOVE 90% ON RA. PT HAS DENIED ANY PAIN. PT WAS FEBRILE AND MEDICATED WITH TYLENOL. HEP GTT INFUSING PER ORDERS. WOUNDS TO BLE CLEANED AND DRIED. PT HAS HAD GOOD URINE OUTPUT, BUT NO BM THIS SHIFT. WILL CONTINUE TO MONITOR AND REPORT TO ONCOMING CUCA
[2021-11-03] MEDS ORDERED: NOVOLIN N100 UNIT/2 SC (21:26)
[2021-11-03] MEDS ORDERED: Cipro500 MG PO (21:32)
[2021-11-03] MEDS ORDERED: METR500 PO (21:32)
[2021-11-04 03:42] LABS: Hemoglobin 6.9 g/dL (13.5-17.5); Mean Corpuscular HGB 30.4 pg (26.0-34.0); Mean Corpuscular HGB Conc 32.9 g/dL (31.5-36.5); Mean Corpuscular Volume 93 fL (80-100); Mean Platelet Volume 8.9 fL (9.1-12.4); Platelet Count 271 K/mm3 (150-400); RDW Coefficient Variation 12.6 % (11.7-14.2); RDW Standard Deviation 42.5 fL (35.1-46.3); Red Blood Cell Count 2.27 M/mm3 (4.30-5.90); White Blood Cell Count 12.64 K/mm3 (4.00-11.30)
[2021-11-04 04:04] LABS: Bun/Creatinine Ratio 25.8 (12.0-20.0); Calcium, Blood 8.2 mg/dL (8.5-10.1); Creatinine, Blood 2.48 mg/dL (0.60-1.20); Potassium, Blood 5.1 mmol/L (3.5-5.5)
--- NOTE | 2021-11-04 05:53 | NUR ---
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 HE IS CONCERNED ABOUT THE LIMITATIONS IT IS GOING TO PUT UPON HIMSELF, AND THAT HIS DEPENDENCE UPON OTHERS WILL BE GREATER THAN IT ALREADY IS. INCREASE IN OXYGEN DEMANDS WHILE AWAKE. SpO2 NOTED TO BE LOW 84% WITH FIRST SET OF VITAL SIGNS. 2 LPM SUPPLEMENTAL OXYGEN ADMINISTERED VIA NASAL CANNULA RESULTED IN SpO2 OF JUST 89%. 3 LPM ADMINISTERED INCEASED SpO2 TO 94-96%. PATIENT DENIED ANY SHORTNESS OF BREATH OR DIFFICULTY BREATHING. COMPLETED PATIENT'S ADMISSION MEDICATION RECONCILIATION. PATIENT TAKES 20 UNITS OF NOVOLIN-N DAILY AND A WEEKLY DOSE OF TRULICITY. HE STATED THAT HIS NOVOLIN-R WAS DISCONTINUED SOME TIME AGO. POC BLOOD GLUCOSE AT BEDTIME LAST NIGHT WAS 383. ONE TIME ORDER RECEIVED FOR 10 UNITS OF HUMALOG. BLOOD GLUCOSE IS 304 WITH THIS MORNING'S LABS. HEPARIN DRIP INFUSING AT 16 UNITS/KG/HOUR. NO CHANGES MADE TO RATE DURING THIS SHIFT.
--- NOTE | 2021-11-04 06:00 | NUR ---
CALL TO HOSPITALIST TO REPORT HEMOGLOBIN OF 6.9. AWAITING RETURN CALL.
--- NOTE | 2021-11-04 06:45 | NUR ---
SECOND CALL TO HOSPITALIST REGARDING HEMOGLOBIN OF 6.9. PUT HEPARIN DRIP ON HOLD DUE TO CONCERN FOR BLEEDING. AWAITING RETURN CALL.
--- NOTE | 2021-11-04 09:22 | NUR ---
UPDATE PT ALERT AND ORIENTED. VS STABLE. PT DENIES ANY PAIN. NO SIGNS OR SYMPTOMS OF BLEEDING. DR. PELAEZ IN AND UPDATED OF HEPARIN BEING PLACED ON STAND BY DURING PREVIOUS SHIFT. ORDERS TO RESUME HEPARIN AND CHECK WITH DR. DENG IF IT NEEDS TO CONTINUE. WILL CONTINUE TO MONITOR CLOSELY
[2021-11-04 09:29] LABS: Percent Saturation 25.3 % (20.0-50.0)
[2021-11-04 14:06] LABS: Hematocrit 24.2 % (37.0-53.0)
--- NOTE | 2021-11-04 16:28 | NUR ---
UPDATE CALLED DR. PELAEZ ABOUT CBG 365. NEW ORDERS RECEIVED. WILL CONTINUE TO MONITOR
--- NOTE | 2021-11-04 17:39 | NUR ---
SHIFT SUMMARY PT REMAINS ALERT AND ORIENTED. BP STABLE. HR STABLE. O2 SATS HAVE REMAINED ABOVE 90% ON 2L NC. PT REPORTS FEELING "MUCH BETTER" AFTER RECEIVING 1 UNIT OF PRBC. PT HAS DENIED ANY PAIN THIS SHIFT. HEP GTT HAS BEEN STOPPED AND DISCONTINUED. PT ABLE TO AMBULATE TO BSC THIS SHIFT WITH MINIMAL ASSISTANCE, BUT NO BM. PT REPORTS APPETITE HAS INCREASED TODAY. PT MOVING HIMSELF WELL IN BED. WILL CONTINUE TO MONITOR CLOSELY AND REPORT TO ONCOMING RN
[2021-11-05 01:53] LABS: BASOPHILS PERCENT AUTO 0 % (0-2); EOSINOPHILS PERCENT AUTO 0 % (0-6); Hematocrit 22.5 % (37.0-53.0); Hemoglobin 7.4 g/dL (13.5-17.5); IMMATURE GRAN ABSOLUTE AUTO 0.08 K/mm3 (0.00-0.10); IMMATURE GRAN PERCENT AUTO 1 % (0-1); LYMPHOCYTES ABSOLUTE AUTO 0.73 K/mm3 (0.84-5.20); LYMPHOCYTES PERCENT AUTO 7 % (21-46); MONOCYTES ABSOLUTE AUTO 0.56 K/mm3 (0.16-1.47); MONOCYTES PERCENT AUTO 5 % (4-13); Mean Corpuscular HGB 30.2 pg (26.0-34.0); Mean Corpuscular HGB Conc 32.9 g/dL (31.5-36.5); Mean Corpuscular Volume 92 fL (80-100); NEUTROPHILS ABSOLUTE AUTO 9.06 K/mm3 (1.96-9.15); NEUTROPHILS PERCENT AUTO 87 % (41-73); Platelet Count 271 K/mm3 (150-400); RDW Coefficient Variation 12.9 % (11.7-14.2); RDW Standard Deviation 42.9 fL (35.1-46.3); Red Blood Cell Count 2.45 M/mm3 (4.30-5.90); White Blood Cell Count 10.43 K/mm3 (4.00-11.30)
[2021-11-05 02:11] LABS: Albumin, Blood 2.2 g/dL (3.4-5.0); Anion Gap 6 mmol/L (6-16); Blood Urea Nitrogen 64 mg/dL (8-24); CO2, Blood 25 mmol/L (21-32); Chloride, Blood 105 mmol/L (98-108); Creatinine, Blood 2.21 mg/dL (0.60-1.20); Glomerular Filtration Rate 30 (60-); Glucose, Blood 321 mg/dL (70-99); Phosphorus, Blood 3.2 mg/dL (2.5-4.9); Potassium, Blood 5.2 mmol/L (3.5-5.5); Sodium, Blood 136 mmol/L (136-145)
--- NOTE | 2021-11-05 06:49 | NUR ---
MARY BETH ODEN REPORTS HAVING SLEPT WELL OVERNIGHT. HE IS STILL REQUIRING SUPPLEMENTAL OXYGEN OF 1-2 LPM VIA NASAL CANNULA WHILE SLEEPING. PT DOES HAVE INTERMITTENT DROPS IN HIS SpO2 LEVELS, AND I OBSERVED HIM TO HAVE EPISODES OF APNEA WHILE SLEEPING. HEMOGLOBIN/HEMATOCRIT DROPPED FROM 8.0/24.2 AT 13:55 YESTERDAY TO 7.4/22.5 WITH THIS MORNING'S LABS. NO VISIBLE SIGNS OF BLEEDING. NO BM OVERNIGHT, SO STILL AWAITING SAMPLE FOR OCCULT STOOL TESTING. DR. LIRIANO CAME BY TO SEE THE PATIENT JUST BEFORE DAY SHIFT ENDED YESTERDAY. PER MR. CLINTON, DR. LIRIANO STATED THAT SURGERY ON HIS RIGHT FOOT WILL NOT BE TAKING PLACE UNTIL FRIDAY OF THIS WEEK. MR. CLINTON IS UPSET BY THIS NEWS AND IS SEEKING CLARIFICATION ON WHAT HE BELIEVES IS A DIFFERENCE OF OPINION BETWEEN DR. LIRIANO AND DR. DENG TO HOW MAY TOES WILL BE AMPUTATED ON HIS RIGHT FOOT.
--- NOTE | 2021-11-05 18:09 | NUR ---
SHIFT SUMMARY PT REMAINS ALERT AND ORIENTED. VS STABLE. BP STABLE. PT DENIES ANY PAIN. O2 SATS HAVE REMAINED ABOVE 90% ON 2L NC. STATUS CHANGED TO MEDICAL TODAY. WOUNDS CLEANED AND DRESSED BY WOUND CARE NURSE THIS SHIFT. PT USING URINAL TO VOID. WILL CONTINUE TO MONITOR AND REPORT TO ONCOMING RN
[2021-11-06 04:43] LABS: BASOPHILS ABSOLUTE AUTO 0.01 K/mm3 (0.00-0.23); BASOPHILS PERCENT AUTO 0 % (0-2); EOSINOPHILS ABSOLUTE AUTO 0.06 K/mm3 (0.00-0.68); EOSINOPHILS PERCENT AUTO 1 % (0-6); Hematocrit 25.4 % (37.0-53.0); Hemoglobin 8.2 g/dL (13.5-17.5); IMMATURE GRAN ABSOLUTE AUTO 0.23 K/mm3 (0.00-0.10); IMMATURE GRAN PERCENT AUTO 2 % (0-1); LYMPHOCYTES ABSOLUTE AUTO 1.41 K/mm3 (0.84-5.20); LYMPHOCYTES PERCENT AUTO 12 % (21-46); MONOCYTES ABSOLUTE AUTO 0.73 K/mm3 (0.16-1.47); MONOCYTES PERCENT AUTO 6 % (4-13); Mean Corpuscular HGB 29.7 pg (26.0-34.0); Mean Corpuscular HGB Conc 32.3 g/dL (31.5-36.5); Mean Corpuscular Volume 92 fL (80-100); NEUTROPHILS ABSOLUTE AUTO 9.17 K/mm3 (1.96-9.15); NEUTROPHILS PERCENT AUTO 79 % (41-73); Platelet Count 304 K/mm3 (150-400); RDW Coefficient Variation 12.9 % (11.7-14.2); RDW Standard Deviation 43.2 fL (35.1-46.3); Red Blood Cell Count 2.76 M/mm3 (4.30-5.90); White Blood Cell Count 11.61 K/mm3 (4.00-11.30)
[2021-11-06 05:10] LABS: Albumin, Blood 2.2 g/dL (3.4-5.0); Anion Gap 4 mmol/L (6-16); Blood Urea Nitrogen 61 mg/dL (8-24); Bun/Creatinine Ratio 26.3 (12.0-20.0); CO2, Blood 26 mmol/L (21-32); Calcium, Blood 8.7 mg/dL (8.5-10.1); Chloride, Blood 106 mmol/L (98-108); Creatinine, Blood 2.32 mg/dL (0.60-1.20); Glomerular Filtration Rate 28 (60-); Glucose, Blood 235 mg/dL (70-99); Phosphorus, Blood 3.4 mg/dL (2.5-4.9); Potassium, Blood 4.8 mmol/L (3.5-5.5); Sodium, Blood 136 mmol/L (136-145)
--- NOTE | 2021-11-06 06:22 | NUR ---
PATIENT RECEIVED FIRST DOSE OF 20 UNITS OF LANTUS LAST NIGHT. BLOOD SUGAR DECREASED FROM 333 AT HS TO 235 WITH MORNING LABS AT 04:20. SUPPLEMENTAL OXYGEN OF 1-3 LPM OVERNIGHT. MORE THAN 25 RECORDED ALARM EVENTS DUE TO SpO2 DROPPING LOW THE 60-80 PERCENTILE RANGE. I OBSERVED MR. CLINTON TO HAVE FREQUENT APNEIC EPISODES WHILE SLEEPING. NPO FOR PLANNED SURGERY ON LEFT FOOT/TOES LATER TODAY.
--- NOTE | 2021-11-06 17:16 | NUR ---
SHIFT SUMMARY PT A&O X4, PT MILDLY ANXIOUS ABOUT UPCOMING SURGERY. RESPONDS TO CALMING AND REASSURING CONVERSATION. VSS; SBP 130'S - 140'S, HR 60'S 70'S, 02 >95% ON 2 L. PT DENIES SOB, CHEST PAIN OR CHEST PRESSURE. PT RESTING ON AND OFF THROUGHOUT SHIFT. PT NPO FOR SURGERY. NO ACUTE CHANGES. PT OUT FOR SURGERY AT 1718 AND TRANSFER TO MEDICAL FLOOR POST-OP. FAMILY AT BEDSIDE FOR AFTERNOON. CALL LIGHT IN REACH AND BED IN LOWEST POSITION.
--- NOTE | 2021-11-06 17:44 | NUR ---
RECIEVED REPORT FROM U 17 RN. AWAITING PT POST PROCEDURE.
--- NOTE | 2021-11-06 18:48 | NUR ---
RECIEVED PT FROM SURGERY/PCU @3337. WILL MONITOR
--- NOTE | 2021-11-07 16:50 | NUR ---
SHIFT SUMMARY- VSS. PT APPETITE GOOD. PT PLEASANT AND A@O X4. PT VENETIE IRA. FAMILY AT BEDSIDE. REPORTED TO BRING L FOOT THERAPUTIC SHOE IN 11/08/21. PT REPORTS NO PAIN DURING SHIFT. PT RESTING NOW WITH CALL LIGHT, SIDE RAILS UP FOR SAFETY.
--- NOTE | 2021-11-08 04:02 | NUR ---
0000 HRS: MEPILEX AND IODOFORM PLACED ON L FOOT. WOUND DRY.
[2021-11-08 04:58] LABS: BASOPHILS ABSOLUTE AUTO 0.02 K/mm3 (0.00-0.23); BASOPHILS PERCENT AUTO 0 % (0-2); Base Excess Venous 1.8 mmol/L; Bicarbonate Venous 25.9 mmol/L (24.0-30.0); EOSINOPHILS ABSOLUTE AUTO 0.22 K/mm3 (0.00-0.68); EOSINOPHILS PERCENT AUTO 2 % (0-6); Hemoglobin 8.9 g/dL (13.5-17.5); IMMATURE GRAN ABSOLUTE AUTO 0.43 K/mm3 (0.00-0.10); IMMATURE GRAN PERCENT AUTO 3 % (0-1); LYMPHOCYTES PERCENT AUTO 16 % (21-46); MONOCYTES ABSOLUTE AUTO 0.98 K/mm3 (0.16-1.47); MONOCYTES PERCENT AUTO 7 % (4-13); Mean Corpuscular Volume 91 fL (80-100); Mean Platelet Volume 8.7 fL (9.1-12.4); NEUTROPHILS ABSOLUTE AUTO 11.11 K/mm3 (1.96-9.15); NEUTROPHILS PERCENT AUTO 73 % (41-73); PCO2 Venous 40.4 mmHg (38-42); Platelet Count 365 K/mm3 (150-400); RDW Coefficient Variation 12.8 % (11.7-14.2); RDW Standard Deviation 41.9 fL (35.1-46.3); Red Blood Cell Count 2.97 M/mm3 (4.30-5.90); White Blood Cell Count 15.16 K/mm3 (4.00-11.30); pH Blood Venous 7.42 (7.34-7.37)
[2021-11-08 05:18] LABS: Albumin, Blood 2.2 g/dL (3.4-5.0); Albumin/Globulin Ratio 0.5 (0.8-1.8); Bilirubin, Total 0.6 mg/dL (0.1-1.0); Bun/Creatinine Ratio 28.9 (12.0-20.0); Calcium, Blood 8.5 mg/dL (8.5-10.1); Creatinine, Blood 1.87 mg/dL (0.60-1.20); Globulin, Blood 4.3 g/dL (2.2-4.0); Potassium, Blood 4.5 mmol/L (3.5-5.5); Total Protein, Blood 6.5 g/dL (6.4-8.2)
--- NOTE | 2021-11-08 05:55 | NUR ---
SHIFT SUMMARY: PT SLEPT T/O THE NIGHT. DID NOT C/O PAIN T/O THE SHIFT. DENIES SOB OR CHEST PAIN. REMAINS ON RA. EATING, DRINKING, VOIDING. REMAINED ON BEDREST FOR THE NIGHT. USED URINAL AT BEDSIDE. MEPILEX REMAINS IN PLACE ON L FOOT. ALEXIA WRAP AND GAUZE REMAIN IN PLACE ON RIGHT FOOT. NO NEW COMPLAINTS FROM THE PT AT THIS TIME. CALL LIGHT REMAINS IN REACH AND PT IS RESTING.
--- NOTE | 2021-11-08 07:46 | NUR ---
PT RESTING QUIETLY IN BED, ON RA. NSR IN 60S ON TELE. WOUNDS TO BILATERAL FEET APPEAR CDI. NO ACUTE NEEDS OR CONCERNS AT THIS TIME.
--- NOTE | 2021-11-08 11:47 | NUR ---
PHYSICAL THERAPIST STATED THAT SHE HAD HEARD THAT PT WAS GOING TO DC TODAY AND WANTED TO KNOW WB STATUS. CALL TO DR JOHNSON OFFICE WITH INSTRUCTIONS THAT OK TO DC AND WB TOLERATED WITH POST-OP SHOE. THERAPIST AWARE
--- NOTE | 2021-11-08 13:30 | NUR ---
CALL TO DR SWARTZ ASKING ABOUT DC STATUS AND TO RELAY THAT DR JOHNSON WANTS PT TO WEAR POST OP BOOT WITH AMBULATION. PT AWARE. CALL TO DR JOHNSON TO LET HIM KNOW THAT PT IS NOT DISCHARGING TODAY.
[2021-11-08 14:20] LABS: Stool Occult Blood Guaiac 1 Pos (Neg)
--- NOTE | 2021-11-08 14:36 | NUR ---
CALL TO DR SWARTZ TO MAKE HIM AWARE OF [facility] RESULTS. NO NEW ORDERS AT THIS TIME.
--- NOTE | 2021-11-08 18:23 | NUR ---
SHIFT SUMMARY: DR JOHNSON CAME TO SEE PT AND EXAMINED BOTH FEET. DRESSINGS CHANGED BILATERALLY. REQUESTED POST OP SHOE FOR BOTH FEET. AWAITING SECOND SHOE FROM INVENTORY TECH. PT DENIES PAIN. NO ACUTE NEEDS OR CONCERNS AT THIS TIME.
--- NOTE | 2021-11-09 07:37 | NUR ---
Rn summary: Patient is in isolation for Covid 19. Drsg to Rt foot is clean/ dry/intact. Mepilex to ball of L foot. Pt lungs were clear with non productive cough on RA. Tylenol for Rt foot pain 3/. Patient has rested without complaint. Looking for DC to SNF.
[2021-11-09] MEDS ORDERED: Amlodipine Bes2.5 MG PO (10:53)
[2021-11-09] MEDS ORDERED: AMOCLA500 PO (10:54)
[2021-11-09] MEDS ORDERED: ASPI81CH PO ×2 (10:54→11:11)
[2021-11-09] MEDS ORDERED: ATOR40TA PO (10:56)
[2021-11-09] MEDS ORDERED: HUMALOG KW100 UNIT/1 SC (11:05)
[2021-11-09] MEDS ORDERED: INSULIN GL100 UNIT/2 SC (11:09)
[2021-11-09] MEDS ORDERED: VISBIOME 112.51 EACH PO (11:09)
[2021-11-09] MEDS ORDERED: FURO40 PO (11:12)
[2021-11-09] MEDS ORDERED: PANT40 PO (11:12)
--- NOTE | 2021-11-09 16:26 | NUR ---
SHIFT SUMMARY PATIENT IS ALERT AND ORIENTED. PATIENT HAS HAD NO ACUTE EVENTS THIS SHIFT. VITAL SIGNS REVIEWED. PATIENTS DRESSING HAS BEEN REDRESSED ON LEFT FOOT REQUESTED. PATIENT WAS WHEELED DOWN BY HUEY MONIQUE.
== END 2021-11-09 16:16 | disposition home health service (06) | DRG 252 ==
LOC: ER 19:32 → PCU 23:08 → MEDS 23:08 → PCU 11-02 00:18 → MEDS 11-06 17:26
PROVIDERS: Internal Medicine; Physician Assistant; Student in an Organized Health Care Education/Training Program; ADMIT Family Medicine
PROC: 8E0ZXY6 Isolation (ICD-10-PCS; 2021-11-01)
PROC: 3E0333Z Introduction of Anti-inflammatory into Peripheral Vein, Percutaneous Approach (ICD-10-PCS; 2021-11-01)
PROC: 3E03329 Introduction of Other Anti-infective into Peripheral Vein, Percutaneous Approach (ICD-10-PCS; 2021-11-01)
PROC: 047R3ZZ Dilation of Right Posterior Tibial Artery, Percutaneous Approach (ICD-10-PCS; 2021-11-02)
PROC: 047V3ZZ Dilation of Right Foot Artery, Percutaneous Approach (ICD-10-PCS; 2021-11-02)
PROC: B41D1ZZ Fluoroscopy of Aorta and Bilateral Lower Extremity Arteries using Low Osmolar Contrast (ICD-10-PCS; 2021-11-02)
PROC: 30233N1 Transfusion of Nonautologous Red Blood Cells into Peripheral Vein, Percutaneous Approach (ICD-10-PCS; principal; 2021-11-04)
PROC: 0Y6P0Z0 Detachment at Right 1st Toe, Complete, Open Approach (ICD-10-PCS; 2021-11-06)
PROC: 0Y6V0Z0 Detachment at Right 4th Toe, Complete, Open Approach (ICD-10-PCS; 2021-11-06)
DX: I21.4 Non-ST elevation (NSTEMI) myocardial infarction (principal); I50.43 Acute on chronic combined systolic (congestive) and diastolic (congestive) heart failure; U07.1 COVID-19; J12.82 Pneumonia due to coronavirus disease 2019; J96.01 Acute respiratory failure with hypoxia; N18.4 Chronic kidney disease, stage 4 (severe); I13.0 Hypertensive heart and chronic kidney disease with heart failure and stage 1 through stage 4 chronic kidney disease, or unspecified chronic kidney disease; E11.52 Type 2 diabetes mellitus with diabetic peripheral angiopathy with gangrene; I70.261 Atherosclerosis of native arteries of extremities with gangrene, right leg; N17.9 Acute kidney failure, unspecified; E87.1 Hypo-osmolality and hyponatremia; L03.115 Cellulitis of right lower limb; D63.1 Anemia in chronic kidney disease; E11.22 Type 2 diabetes mellitus with diabetic chronic kidney disease; E78.00 Pure hypercholesterolemia, unspecified; E11.42 Type 2 diabetes mellitus with diabetic polyneuropathy; I25.10 Atherosclerotic heart disease of native coronary artery without angina pectoris; E11.621 Type 2 diabetes mellitus with foot ulcer; L97.529 Non-pressure chronic ulcer of other part of left foot with unspecified severity; E88.09 Other disorders of plasma-protein metabolism, not elsewhere classified; Z95.5 Presence of coronary angioplasty implant and graft; I25.2 Old myocardial infarction; Z79.899 Other long term (current) drug therapy; Z79.82 Long term (current) use of aspirin; Z95.820 Peripheral vascular angioplasty status with implants and grafts; Z98.890 Other specified postprocedural states; Z79.01 Long term (current) use of anticoagulants; Z88.8 Allergy status to other drugs, medicaments and biological substances; Z89.422 Acquired absence of other left toe(s); Z79.4 Long term (current) use of insulin; Z90.89 Acquired absence of other organs
CPT/HCPCS: 0241U; 36415; 36430; 37228; 71045; 75716; 75774; 76937; 80048; 80053; 80061; 80069; 82272; 82607; 82728; 82746; 82803; 82947; 83540; 83550; 83605; 83880; 84145; 84484; 85014; 85018; 85025; 85027; 85520; 85610; 85730; 86140; 86850; 86900; 86901; 86923; 87040; 88305; 88311; 93005; 93010; 93926; 94760; 94762; 96365; 96366; 96368; 96375; 97110; 97116; 97162; 97530; 99152; 99153; 99285-25; A9270; C1725; C1751; C1760; C1769; C1887; C1894; C8929; J0248; J0295; J0690; J1100; J1644; J1650; J1815; J2543; J2704; J2795; J3010; J3370; J7030; J7050; P9016; Q9957; Q9967

== ENCOUNTER 2021-12-11 14:48 | Inpatient (IN) | payer MEDICARE ==
[~2021-12-11] VITALS: Ht 190.5 cm; Wt 98.1 kg
[~2021-12-11 14:48] MED LIST changes: +AMOCLA500 PO; +ASPI81CH PO; +ATOR40TA PO; +Amlodipine Bes2.5 MG PO; +Cipro500 MG PO; +FURO40 PO; +HUMALOG KW100 UNIT/1 SC; +INSULIN GL100 UNIT/2 SC; +METR500 PO; +NOVOLIN N100 UNIT/2 SC; +PANT40 PO; +VISBIOME 112.51 EACH PO
[2021-12-11 17:16] LABS: BASOPHILS ABSOLUTE AUTO 0.07 K/mm3 (0.00-0.23); BASOPHILS PERCENT AUTO 0 % (0-2); EOSINOPHILS ABSOLUTE AUTO 0.22 K/mm3 (0.00-0.68); EOSINOPHILS PERCENT AUTO 1 % (0-6); Hematocrit 27.3 % (37.0-53.0); Hemoglobin 8.9 g/dL (13.5-17.5); IMMATURE GRAN ABSOLUTE AUTO 0.05 K/mm3 (0.00-0.10); IMMATURE GRAN PERCENT AUTO 0 % (0-1); LYMPHOCYTES ABSOLUTE AUTO 1.77 K/mm3 (0.84-5.20); LYMPHOCYTES PERCENT AUTO 11 % (21-46); MONOCYTES PERCENT AUTO 6 % (4-13); Mean Corpuscular HGB 29.2 pg (26.0-34.0); Mean Corpuscular HGB Conc 32.6 g/dL (31.5-36.5); Mean Corpuscular Volume 90 fL (80-100); Mean Platelet Volume 9.2 fL (9.1-12.4); NEUTROPHILS PERCENT AUTO 82 % (41-73); Platelet Count 387 K/mm3 (150-400); RDW Coefficient Variation 13.6 % (11.7-14.2); RDW Standard Deviation 44.6 fL (35.1-46.3); Red Blood Cell Count 3.05 M/mm3 (4.30-5.90); White Blood Cell Count 16.41 K/mm3 (4.00-11.30)
[2021-12-11 17:33] LABS: Albumin, Blood 2.6 g/dL (3.4-5.0); Albumin/Globulin Ratio 0.5 (0.8-1.8); Bilirubin, Total 0.3 mg/dL (0.1-1.0); Bun/Creatinine Ratio 22.3 (12.0-20.0); Calcium, Blood 9.4 mg/dL (8.5-10.1); Creatinine, Blood 2.73 mg/dL (0.60-1.20); Globulin, Blood 5.7 g/dL (2.2-4.0); Potassium, Blood 4.8 mmol/L (3.5-5.5); Total Protein, Blood 8.3 g/dL (6.4-8.2)
[2021-12-11] MEDS ORDERED: CARVEDILOL3.125 MG (17:44)
[2021-12-11] MEDS ORDERED: PLAVIX75 MG PO (17:44)
[2021-12-11] MEDS ORDERED: TORS10 (17:44)
[2021-12-11] MEDS ORDERED: TRULICITY3 MG/0.5 M SQ (17:44)
--- NOTE | 2021-12-12 03:26 | NUR ---
SHIFT SUMMARY PATIENT ADMITTED TO THE SURGICAL FLOOR AT 2200, TRANSFERRED WITH SLIDER SHEET. ALERT AND ORIENTED TO ROOM. ORDERS REVIEWED, MEDICATIONS ADMINISTERED. R FOOT AND TOES WITH BLACK TISSUE OPEN WITH GAUZE PADS COVERING EXUDATE. THIS RN REDRESSED WITH NON-ADHERENT DRESSING, AND KERLEX WRAP. LEFT FOOT WITH OPEN CALUS AND SATURATED BANDAGE. DRESSING CHANGED WITH NON-ADHERANT DRESSING AND TAPE. MEDICATED WITH TYLENOL FOR PAIN WITH RELIEF. URINAL AT BEDSIDE. NPO SINCE MIDNIGHT FOR SURGICAL INTERVENTION WITH DR. JOHNSON. RESTING COMFORTABLY AT THIS TIME. VSS, CALL LIGHT IN REACH.
[2021-12-12 06:25] LABS: Hematocrit 25.5 % (37.0-53.0); Hemoglobin 8.1 g/dL (13.5-17.5); Mean Corpuscular HGB 28.7 pg (26.0-34.0); Mean Corpuscular HGB Conc 31.8 g/dL (31.5-36.5); Mean Corpuscular Volume 90 fL (80-100); Mean Platelet Volume 8.9 fL (9.1-12.4); Platelet Count 330 K/mm3 (150-400); RDW Coefficient Variation 13.4 % (11.7-14.2); Red Blood Cell Count 2.82 M/mm3 (4.30-5.90); White Blood Cell Count 13.18 K/mm3 (4.00-11.30)
[2021-12-12 06:56] LABS: Bun/Creatinine Ratio 25.2 (12.0-20.0); Calcium, Blood 9.2 mg/dL (8.5-10.1); Creatinine, Blood 2.5 mg/dL (0.60-1.20)
--- NOTE | 2021-12-12 07:12 | NUR ---
DRESSINGS CHANGED AND PICTURES TAKEN. SEE CHART FOR PICS.
[2021-12-12 09:01] LABS: SARS-Cov-2 (COVID-19) PCR, MMC NEGATIVE (NEGATIVE)
--- NOTE | 2021-12-12 17:21 | NUR ---
PATIENT TO DAY SURGERY VIA [facility] WITH [facility] ALVAREZ
--- NOTE | 2021-12-12 17:40 | NUR ---
THE PATIENT WAS BROUGHT TO DAY SURGERY FOR HIS PROCEDURE.
--- NOTE | 2021-12-12 19:55 | NUR ---
PT ARRIVED TO FLOOR FROM DAY SURGERY. A/OX4, VSS. RLE IS WRAPPED IN GAUZE AND AN ALEXIA BANDAGE, C/D/I. PT REPORTS NO PAIN. CALL LIGHT IN REACH, BED IN LOW, SCD'S ON.
--- NOTE | 2021-12-13 04:08 | NUR ---
POD0 FOR A RIGHT TMA. DRESSED WITH GAUZE AND ALEXIA WRAP, C/D/I. CIRCULTION AND SENSATION REMAINS INTACT IN RLE. 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 VSS. THE PT SLEPT WELL T/O THE NIGHT AFTER ARRIVING BACK FROM THE OR. TOLLERATING PO INTAKE WELL, DENIES ANY N/V. VOIDING INTO URINAL INDEPENDENTLY W/O DIFFICULTY. THE PT HAS NOT GOTTEN OOB THIS SHIFT DUE TO BEING DROWSY FROM ANESTHESIA. PAIN HAS BEEN MANAGED WITH NORCO. THE PATIENT IS CURRENTLY RESTING IN BED, IN NO DISTRESS. CALL LIGHT IN REACH.
--- NOTE | 2021-12-13 12:31 | NUR ---
PATIENT GAVE VERBAL PERMISSION TO HAVE STUDENT JOSÉ MIGUEL BE INVOLVED IN CARE
--- NOTE | 2021-12-13 12:35 | NUR ---
NO ACUTE CHANGES SINCE ASSUMPTION OF CARE. PATIENT IS POD 1 R TMA, PAIN MANAGED PER EMAR. EATING, DRINKING, & VOIDING WELL. REPORT GIVEN TO CUCA QUICK.
--- NOTE | 2021-12-13 18:04 | NUR ---
SHIFT SUMMARY ASSUMED CARE AT 1245 AFTER GETTING REPORT FROM PRIOR RN, PT WAS IN BED AND COMFORTABLE AT FIRST OBSERVATION OF BEDSIDE REPORT, PT DENEID ANY NEEDS AT THAT TIME. VASCULAR CONSULT CALLED IN BY PRIOR RN AND PERFORMED BY DR. DENG WHO DISCUSSED HIS PLAN WITH THE PATIENT. PHYSICAL THERAPY EVALUATINO COMPLETED. PAIN MANAGED PER EMAR WITH PO MEDS. NO ACUTE EVENTS THIS SHIFT, CALL LIGHT IN REACH, WILL CTM AND REPORT TO ONCOMING NOC RN.
--- NOTE | 2021-12-14 04:18 | NUR ---
POD2 FOR A RIGHT TMA. DRESSING REINFORCED 2X T/O THE SHIFT DUE TO SANGUINEOUS DRAINAGE. CIRCULATION AND SENSATION REMAINS INTACT IN RLE. VSS. TEMPERATURE NOTED TO BE ELEVATED WITH AM VITALS. MEDICATED WITH TYLENOL. PLAN TO MONITOR. MEDICATED FOR PAIN ONCE WITH NORCO. THE PATIENT SLEPT WELL T/O THE NIGHT. TOLLERATING PO INTAKE, PASSING FLATTUS, VOIDING INDEPENDENTLY INTO THE URINAL. PLAN FOR PT TO WORK WITH PT TODAY AND ASSESS IF DISCHARGE IS SAFE. THE PATIENT IS CURRENTLY SLEEPING, IN NO DISTRESS. CALL LIGHT IN REACH
[2021-12-14 08:07] LABS: Hematocrit 26.1 % (37.0-53.0); Hemoglobin 8.2 g/dL (13.5-17.5); Mean Corpuscular HGB 28.6 pg (26.0-34.0); Mean Corpuscular HGB Conc 31.4 g/dL (31.5-36.5); Mean Corpuscular Volume 91 fL (80-100); Mean Platelet Volume 8.7 fL (9.1-12.4); Platelet Count 343 K/mm3 (150-400); RDW Coefficient Variation 13.3 % (11.7-14.2); RDW Standard Deviation 44.2 fL (35.1-46.3); Red Blood Cell Count 2.87 M/mm3 (4.30-5.90); White Blood Cell Count 13.32 K/mm3 (4.00-11.30)
[2021-12-14 08:22] LABS: Albumin, Blood 2.2 g/dL (3.4-5.0); Anion Gap 3 mmol/L (6-16); Blood Urea Nitrogen 47 mg/dL (8-24); Bun/Creatinine Ratio 19.7 (12.0-20.0); CO2, Blood 29 mmol/L (21-32); Calcium, Blood 8.9 mg/dL (8.5-10.1); Chloride, Blood 103 mmol/L (98-108); Creatinine, Blood 2.38 mg/dL (0.60-1.20); Glomerular Filtration Rate 27 (60-); Glucose, Blood 181 mg/dL (70-99); Phosphorus, Blood 3.1 mg/dL (2.5-4.9); Potassium, Blood 5.4 mmol/L (3.5-5.5); Sodium, Blood 135 mmol/L (136-145)
--- NOTE | 2021-12-14 15:37 | NUR ---
SHIFT SUMMARY POD2 R TMA, A/OX 4 BUT FORGETFUL AT TIMES, DRESSING INTACT AND CHANGED LAST NIGHT PER NOC RN REPORT, PT ABLE TO GET UP AND TRANSFER WITH MIN-MOD ASSIST (MODERATE WHEN HE IS FEELING TIRED). DISCUSSED DISCHARGE INFORMATION WITH THE PATIENT INCLUDING HOME CARE, MEDICATIONS, FOLLOW UP APPOINTMENTS, AND WHAT TO LOOK OUT FOR AND HOW TO CONTACT THE DOCTOR SHOULD ANY CONCERNS ARISE. PT REPORTS HAVING NO QUESTIONS AT TIME OF DISCHARGE. PT FAMILY TO BE HERE AT 1700 TO TAKE HIM HOME, PT RESTING IN BED AT THIS TIME.
== END 2021-12-14 17:36 | disposition home or self-care (01) | DRG 240 ==
LOC: ER 14:48 → SURS 20:21 → ER 12-12 10:45 → SURS 12-13 08:58
PROVIDERS: Internal Medicine; Physician Assistant; Podiatrist; ADMIT Internal Medicine
PROC: 0Y6M0ZB Detachment at Right Foot, Partial 2nd Ray, Open Approach (ICD-10-PCS; 2021-12-12)
PROC: 0Y6M0ZC Detachment at Right Foot, Partial 3rd Ray, Open Approach (ICD-10-PCS; 2021-12-12)
PROC: 0Y6M0ZD Detachment at Right Foot, Partial 4th Ray, Open Approach (ICD-10-PCS; 2021-12-12)
PROC: 0Y6M0ZF Detachment at Right Foot, Partial 5th Ray, Open Approach (ICD-10-PCS; 2021-12-12)
PROC: 0Y6M0Z9 Detachment at Right Foot, Partial 1st Ray, Open Approach (ICD-10-PCS; principal; 2021-12-12 18:00)
DX: E11.52 Type 2 diabetes mellitus with diabetic peripheral angiopathy with gangrene (principal); I96 Gangrene, not elsewhere classified; N18.4 Chronic kidney disease, stage 4 (severe); E11.40 Type 2 diabetes mellitus with diabetic neuropathy, unspecified; E11.22 Type 2 diabetes mellitus with diabetic chronic kidney disease; E78.5 Hyperlipidemia, unspecified; D63.1 Anemia in chronic kidney disease; I12.9 Hypertensive chronic kidney disease with stage 1 through stage 4 chronic kidney disease, or unspecified chronic kidney disease; I25.10 Atherosclerotic heart disease of native coronary artery without angina pectoris; Z89.421 Acquired absence of other right toe(s); Z95.828 Presence of other vascular implants and grafts; Z90.89 Acquired absence of other organs; Z88.1 Allergy status to other antibiotic agents; Z79.02 Long term (current) use of antithrombotics/antiplatelets; Z79.82 Long term (current) use of aspirin; Z79.899 Other long term (current) drug therapy
CPT/HCPCS: 36415; 80048; 80053; 80069; 82947; 85025; 85027; 85651; 86140; 86850; 86900; 86901; 96372; 97110-CQ; 97116; 97116-CQ; 97162; 97530; A9270; G0378; J0690; J1100; J1644; J1815; J2250; J2370; J2405; J2704; J2795; J3010; J7120; U0004

== ENCOUNTER 2021-12-14 19:04 | Inpatient (IN) | payer MEDICARE ==
[~2021-12-14] VITALS: Ht 190.5 cm; Wt 97.0 kg
[~2021-12-14 19:04] MED LIST changes: +CARVEDILOL3.125 MG; +PLAVIX75 MG PO; +TORS10; +TRULICITY3 MG/0.5 M SQ
[2021-12-14 20:31] LABS: Albumin, Blood 2.7 g/dL (3.4-5.0); Albumin/Globulin Ratio 0.4 (0.8-1.8); Bilirubin, Total 0.8 mg/dL (0.1-1.0); Bun/Creatinine Ratio 19.8 (12.0-20.0); Calcium, Blood 9.7 mg/dL (8.5-10.1); Creatinine, Blood 2.52 mg/dL (0.60-1.20); Globulin, Blood 6.5 g/dL (2.2-4.0); Potassium, Blood 5.8 mmol/L (3.5-5.5); Total Protein, Blood 9.2 g/dL (6.4-8.2)
[2021-12-14 20:54] LABS: BASOPHILS ABSOLUTE AUTO 0.07 K/mm3 (0.00-0.23); BASOPHILS PERCENT AUTO 0 % (0-2); EOSINOPHILS ABSOLUTE AUTO 0.04 K/mm3 (0.00-0.68); EOSINOPHILS PERCENT AUTO 0 % (0-6); Hematocrit 29.3 % (37.0-53.0); Hemoglobin 9.5 g/dL (13.5-17.5); IMMATURE GRAN ABSOLUTE AUTO 0.13 K/mm3 (0.00-0.10); IMMATURE GRAN PERCENT AUTO 1 % (0-1); LYMPHOCYTES ABSOLUTE AUTO 1.02 K/mm3 (0.84-5.20); LYMPHOCYTES PERCENT AUTO 5 % (21-46); MONOCYTES PERCENT AUTO 7 % (4-13); Mean Corpuscular HGB Conc 32.4 g/dL (31.5-36.5); Mean Corpuscular Volume 89 fL (80-100); Mean Platelet Volume 8.7 fL (9.1-12.4); NEUTROPHILS PERCENT AUTO 87 % (41-73); Platelet Count 442 K/mm3 (150-400); RDW Coefficient Variation 13.4 % (11.7-14.2); RDW Standard Deviation 43.9 fL (35.1-46.3); Red Blood Cell Count 3.28 M/mm3 (4.30-5.90); White Blood Cell Count 19.26 K/mm3 (4.00-11.30)
--- NOTE | 2021-12-15 04:50 | NUR ---
Patient admitted for AMS, s/p 3rd/4th toes on right foot, surgery 2 days ago, patient left [facility] on 12/14/21, noticed AMS, unsteady on feet. Patient AOx3, reports moderate pain in right foot. 2 RN skin checked completed on admission, dressing applied to right foot, and wrapped with ALEXIA banadge. Nonadherent applied to left foot, per patient preference. Purple bruise noted on right flank, inner gluteal cleft, observed dark color/skin. No other skin issues noted. BP/Heart rate WNL, RR 16, temp 99.8 calculated VEWs score of 1. Tylenol given for pain, pt reported chills.
[2021-12-15 05:33] LABS: BASOPHILS ABSOLUTE AUTO 0.06 K/mm3 (0.00-0.23); BASOPHILS PERCENT AUTO 0 % (0-2); EOSINOPHILS ABSOLUTE AUTO 0.03 K/mm3 (0.00-0.68); EOSINOPHILS PERCENT AUTO 0 % (0-6); Hematocrit 24.5 % (37.0-53.0); Hemoglobin 8.2 g/dL (13.5-17.5); IMMATURE GRAN ABSOLUTE AUTO 0.08 K/mm3 (0.00-0.10); IMMATURE GRAN PERCENT AUTO 1 % (0-1); LYMPHOCYTES ABSOLUTE AUTO 1.33 K/mm3 (0.84-5.20); LYMPHOCYTES PERCENT AUTO 8 % (21-46); MONOCYTES ABSOLUTE AUTO 1.62 K/mm3 (0.16-1.47); MONOCYTES PERCENT AUTO 9 % (4-13); Mean Corpuscular HGB 29.6 pg (26.0-34.0); Mean Corpuscular HGB Conc 33.5 g/dL (31.5-36.5); Mean Corpuscular Volume 88 fL (80-100); Mean Platelet Volume 8.5 fL (9.1-12.4); NEUTROPHILS ABSOLUTE AUTO 14.31 K/mm3 (1.96-9.15); NEUTROPHILS PERCENT AUTO 82 % (41-73); Platelet Count 324 K/mm3 (150-400); RDW Coefficient Variation 13.5 % (11.7-14.2); RDW Standard Deviation 44.1 fL (35.1-46.3); Red Blood Cell Count 2.77 M/mm3 (4.30-5.90); White Blood Cell Count 17.43 K/mm3 (4.00-11.30)
[2021-12-15 06:12] LABS: Albumin, Blood 2.3 g/dL (3.4-5.0); Albumin/Globulin Ratio 0.4 (0.8-1.8); Bilirubin, Total 0.7 mg/dL (0.1-1.0); Bun/Creatinine Ratio 19.4 (12.0-20.0); Creatinine, Blood 2.48 mg/dL (0.60-1.20); Globulin, Blood 5.5 g/dL (2.2-4.0); Potassium, Blood 4.6 mmol/L (3.5-5.5); Total Protein, Blood 7.8 g/dL (6.4-8.2)
[2021-12-15 09:26] LABS: U Amphetamine Screen Not Detected; U Barbituate Screen Not Detected; U Benzodiazapine Screen Not Detected; U Buprenorphine Screen Not Detected; U Cannabinoids Screen Not Detected; U Cocaine Screen Not Detected; U Methadone Screen Not Detected; U Methamphetamine Screen Not Detected; U Opiates Screen DETECTED; U Oxycodone Screen Not Detected; U Phencyclidine Screen Not Detected; U Propoxyphene Screen Not Detected
--- NOTE | 2021-12-15 19:47 | NUR ---
SHIFT SUMMARY- ASSUMED CARE OF THIS PT AT 1400. HE IS PLESANT AND COOPERATIVE. HE DID NOT EAT AT THE TIME DINNER WAS SERVED. HE SLEPT FOR MOST OF MY SHIFT. HIS BED IS IN THE LOW POSITION AND CALL LIGHT IS WITHIN REACH. BG WAS ELEVATED DISCUSSED WITH PROVIDER AND INSULIN COVERAGE WAS ORDERED.
--- NOTE | 2021-12-16 04:19 | NUR ---
SHIFT SUMMARY MEDICATED FOR RIGHT FOOT PAIN X1 THIS SHIFT WITH EFFECT. BG WAS IN THE 300'S THIS SHIFT, COVERAGE PER ORDERS. DRESSING INTACT TO RIGHT FOOT. PT A/OX4 BUT FORGETFUL AT TIMES. NO ACUTE CHANGES OVERNIGHT, PT HAS RESTED T/O SHIFT. BED IN LOWEST POSITION, CALL LIGHT WITHIN REACH.
[2021-12-16 05:28] LABS: Hematocrit 22.5 % (37.0-53.0); Hemoglobin 7.4 g/dL (13.5-17.5); Mean Corpuscular HGB 29.1 pg (26.0-34.0); Mean Corpuscular HGB Conc 32.9 g/dL (31.5-36.5); Mean Corpuscular Volume 89 fL (80-100); Mean Platelet Volume 8.7 fL (9.1-12.4); Platelet Count 290 K/mm3 (150-400); RDW Coefficient Variation 13.6 % (11.7-14.2); RDW Standard Deviation 44.3 fL (35.1-46.3); Red Blood Cell Count 2.54 M/mm3 (4.30-5.90); White Blood Cell Count 18.63 K/mm3 (4.00-11.30)
[2021-12-16 05:49] LABS: Albumin, Blood 2.1 g/dL (3.4-5.0); Anion Gap 9 mmol/L (6-16); Blood Urea Nitrogen 54 mg/dL (8-24); Bun/Creatinine Ratio 18.6 (12.0-20.0); CO2, Blood 25 mmol/L (21-32); Calcium, Blood 8.8 mg/dL (8.5-10.1); Chloride, Blood 100 mmol/L (98-108); Glomerular Filtration Rate 22 (60-); Glucose, Blood 190 mg/dL (70-99); Potassium, Blood 4.3 mmol/L (3.5-5.5); Sodium, Blood 134 mmol/L (136-145)
--- NOTE | 2021-12-16 08:00 | NUR ---
pt laying in bed with eyes closed, wakes to voices, states he slept ok, had a good night but is still tired, a/ox3, but forgetful, lungs clear r/a, resp even and unlabored, no cough noted, hrr, no edema noted, piv x2, s.l., btx4, abd round soft nontender, voids without diff, skin c/w/d, except feet have dressings, maew, fantasma, call light in reach.
--- NOTE | 2021-12-16 18:12 | NUR ---
pt had an uneventful day, states his legs hurt a bit, has had tylenol, no acute changes or needs. call light in reach.
--- NOTE | 2021-12-17 03:56 | NUR ---
EDGE GLUE MACHINE TENDER SUMMARY ALERT TO QUESTIONS ASKED. SOME INTERMITTENT LOSS OF TIME, THINKING IT WAS TIME TO "GET UP" AROUND MIDNIGHT. REDIRECTED. TYLENOL FOR PAIN OF RIGHT FOOT. DRESSING INTACT, NO NOTED DRAINAGE. USING URINAL. OTHERWISE HAS BEEN RESTING QUIETLY WITHOUT NOTED S/S ACUTE DISTRESS. CALL LIGHT IN REACH. WILL CONTINUE TO MONITOR.
--- NOTE | 2021-12-17 08:00 | NUR ---
pt laying in bed watching tv, a/ox3, pleasant and cooperative with care, follows commands well, denies pain at this time, lungs are clear dim in bases, resp even and unlabored, no cough noted, hrr, no edema noted, ppp faint, cap refill <3sec, vs stable afebrile, iv site to rwrist is clear and patent, s.l. btx4, abd flat soft nontender, incont of urine, bedpan for stool, moves upper ext well, skin has dressings to r foot, fantasma, call light in reach.
[2021-12-17 08:24] LABS: BASOPHILS ABSOLUTE AUTO 0.04 K/mm3 (0.00-0.23); BASOPHILS PERCENT AUTO 0 % (0-2); EOSINOPHILS ABSOLUTE AUTO 0.32 K/mm3 (0.00-0.68); EOSINOPHILS PERCENT AUTO 2 % (0-6); Hematocrit 22.4 % (37.0-53.0); Hemoglobin 7.2 g/dL (13.5-17.5); IMMATURE GRAN PERCENT AUTO 1 % (0-1); LYMPHOCYTES ABSOLUTE AUTO 1.16 K/mm3 (0.84-5.20); LYMPHOCYTES PERCENT AUTO 7 % (21-46); MONOCYTES ABSOLUTE AUTO 1.15 K/mm3 (0.16-1.47); MONOCYTES PERCENT AUTO 7 % (4-13); Mean Corpuscular HGB 28.6 pg (26.0-34.0); Mean Corpuscular HGB Conc 32.1 g/dL (31.5-36.5); Mean Corpuscular Volume 89 fL (80-100); NEUTROPHILS ABSOLUTE AUTO 14.77 K/mm3 (1.96-9.15); NEUTROPHILS PERCENT AUTO 84 % (41-73); Platelet Count 329 K/mm3 (150-400); RDW Coefficient Variation 13.6 % (11.7-14.2); RDW Standard Deviation 44.7 fL (35.1-46.3); Red Blood Cell Count 2.52 M/mm3 (4.30-5.90); White Blood Cell Count 17.54 K/mm3 (4.00-11.30)
[2021-12-17 08:43] LABS: Anion Gap 5 mmol/L (6-16); Blood Urea Nitrogen 61 mg/dL (8-24); Bun/Creatinine Ratio 19.4 (12.0-20.0); CO2, Blood 28 mmol/L (21-32); Calcium, Blood 8.9 mg/dL (8.5-10.1); Chloride, Blood 101 mmol/L (98-108); Creatinine, Blood 3.14 mg/dL (0.60-1.20); Glomerular Filtration Rate 20 (60-); Glucose, Blood 153 mg/dL (70-99); Phosphorus, Blood 3.9 mg/dL (2.5-4.9); Potassium, Blood 4.7 mmol/L (3.5-5.5); Sodium, Blood 134 mmol/L (136-145)
--- NOTE | 2021-12-17 18:44 | NUR ---
Pt up to chair for a few hrs, he felt like his foot is more swollen after therapy, started him on tramadol for pain, this worked pretty well, Dr. Vela in to see him and changed his dressing, the skin around the incision is a bit dusky, family in to visit, no further changes this shift. call light in reach.
--- NOTE | 2021-12-18 03:47 | NUR ---
PIPELINE CONSTRUCTION INSPECTOR SUMMARY ALERT AND ORIENTED. DRESSING OF FOOT INTACT. HAS BEEN RESTING QUIETLY WITH FEW INTERRUPTIONS. VSS. CALL LIGHT IN REACH. WILL CONTINUE TO MONITOR.
[2021-12-18 09:16] LABS: Hematocrit 20.4 % (37.0-53.0); Hemoglobin 6.5 g/dL (13.5-17.5); Mean Corpuscular HGB 28.6 pg (26.0-34.0); Mean Corpuscular HGB Conc 31.9 g/dL (31.5-36.5); Mean Corpuscular Volume 90 fL (80-100); Mean Platelet Volume 9.1 fL (9.1-12.4); Platelet Count 351 K/mm3 (150-400); RDW Coefficient Variation 13.9 % (11.7-14.2); RDW Standard Deviation 45.9 fL (35.1-46.3); Red Blood Cell Count 2.27 M/mm3 (4.30-5.90); White Blood Cell Count 15.31 K/mm3 (4.00-11.30)
[2021-12-18 09:39] LABS: Anion Gap 9 mmol/L (6-16); Blood Urea Nitrogen 73 mg/dL (8-24); Bun/Creatinine Ratio 20.4 (12.0-20.0); CO2, Blood 24 mmol/L (21-32); Calcium, Blood 9.2 mg/dL (8.5-10.1); Chloride, Blood 101 mmol/L (98-108); Creatinine, Blood 3.58 mg/dL (0.60-1.20); Glomerular Filtration Rate 17 (60-); Glucose, Blood 160 mg/dL (70-99); Phosphorus, Blood 3.9 mg/dL (2.5-4.9); Potassium, Blood 4.5 mmol/L (3.5-5.5); Sodium, Blood 134 mmol/L (136-145)
[2021-12-18 11:00] LABS: Hematocrit 19.6 % (37.0-53.0); Hemoglobin 6.4 g/dL (13.5-17.5); Mean Corpuscular HGB 29.1 pg (26.0-34.0); Mean Corpuscular HGB Conc 32.7 g/dL (31.5-36.5); Mean Corpuscular Volume 89 fL (80-100); Platelet Count 306 K/mm3 (150-400); RDW Coefficient Variation 13.9 % (11.7-14.2); RDW Standard Deviation 45.3 fL (35.1-46.3); White Blood Cell Count 15.16 K/mm3 (4.00-11.30)
--- NOTE | 2021-12-18 16:11 | NUR ---
SHIFT SUMMARY PATIENT DENIES PAIN, NAUSEA, AND SHORTNESS OF BREATH. PATIENT IS A 1P WITH A FWW. PATIENT IS 75% WEIGHT BEARING TO THE R FOOT. PATIENT HBG WAS 6.5 THIS MORNING. PATIENT REPORTS FATIGUE BUT NO OTHER SYMPTOMS. DR. BUCKNER NOTIFIED. 1 UNIT GIVEN. PATIENT TOLERATED WELL. PATIENT FEARFUL ABOUT ENDING UP IN A WHEELCHAIR. CASE MANAGEMENT TALKED WITH PATIENT, SEE NOTES. DR. DENG IN TO SEE PATIENT. PLAN TO DO ANGIO ON RIGHT LEG. CHARGE NOTIFIED, PATIENT TO GO TO PCU 19 AFTER PROCEDURE. PATIENT NOTIFIED. CONTRACT ADMINISTRATION COORDINATOR NURSE TO GET PATIENT AT 1610. BELONGINGS WILL BE SENT TO PATIENT NEW ROOM ONCE IT IS CLEAN. REPORT CALLED TO JOSE.
--- NOTE | 2021-12-18 19:22 | NUR ---
Transfer note Received telephone report from Lemuel Bahena; bedside report from quality control lab technician. Pt to room at approx 1841. Left groin site has angioseal in place, no bruising bleedin or hematoma noted, soft nontender. vss. no other acute changes. report givne to oncoming rn.
--- NOTE | 2021-12-18 20:56 | NUR ---
ASSUMPTION OF CARE THIS RN ASSUMED CARE OF PATIENT AT 1900. REPORT TAKEN FROM JOSE THURMAN. PATIENT RETURNED RIGHT BEFORE SHIFT CHANGE FROM NOODLE MAKER FOR REVASC PROCEDURE. LEFT FEMORAL SITE WNL; SLIGHT BRUISING THAT HAS NOT CHANGED/INCREASED SINCE ARRIVAL. NO SWELLING OR SIGNS OF BLEEDING NOTED. PATIENT WITH STABLE VITALS. LYING FLAT PER POST FEMORAL SITE ORDER/PROTOCOL. PATIENT UNDERSTANDS THE NEED TO NOT FLEX HIPS/LEGS, BUT IS FORGETFUL PER PREVIOUS RN. PATIENT PUT INTO [place]ENDE[place]BURG TO TAKE EVENING MEDICATIONS. PATIENT REPORTS NEUROPATHIC PAIN IN RIGHT LEG; MEDICATED PER EMAR. PATIENT APPEARS TO BE SLEEPING CURRENTLY WITH EQUAL CHEST RISE/FALL NOTED. THIS RN WILL REVIEW CHART AND CONTINUE TO MONITOR AND PROVIDE INTERVENTIONS NEEDED/ORDERED. BED IN LOWEST POSITION, CALL LIGHT WITHIN REACH, BED ALARM ON.
[2021-12-19 04:58] LABS: Hematocrit 22.1 % (37.0-53.0); Hemoglobin 7.2 g/dL (13.5-17.5); Mean Corpuscular HGB 28.7 pg (26.0-34.0); Mean Corpuscular HGB Conc 32.6 g/dL (31.5-36.5); Mean Corpuscular Volume 88 fL (80-100); Mean Platelet Volume 8.9 fL (9.1-12.4); Platelet Count 332 K/mm3 (150-400); RDW Coefficient Variation 14.1 % (11.7-14.2); RDW Standard Deviation 45.5 fL (35.1-46.3); Red Blood Cell Count 2.51 M/mm3 (4.30-5.90); White Blood Cell Count 14.08 K/mm3 (4.00-11.30)
--- NOTE | 2021-12-19 05:03 | NUR ---
SHIFT SUMMARY PATIENT ALERT AND ORIENTED FULLY BUT IS FORGETFUL AT TIMES ABOUT STAFF MEMBERS AND WHAT HE HAS TOLD THIS RN ALREADY. THIS RN ALSO NOTED THAT HE WAS REACHING OUT AND TALKING TO HIMSELF DURING THE NIGHT. VITALS STABLE. LEFT FEMORAL SITE RECOVERED; NO COMPLICATIONS NOTED; NO SWELLING, BLEEDING, DRAINAGE, OR DISCOLORATION NOTED AT SITE. DRESSING ON RIGHT AMPUTATION FROM LAST WEEK IS C/D/I. DRESSING ON LEFT TOE AMPUTATION C/D/I; THIS AMPUTATION WAS DONE SEVERAL YEARS AGO BUT THERE IS A SMALL OPEN ABRASION. PATIENT REPORTED PAIN IN RIGHT LEG DURING BEGINNING OF SHIFT BUT NOW STATES HE IS COMFORTABLE. PATIENT FEBRILE EARLIER THIS AM AND WAS MEDICATED WITH TYLENOL, WHICH BROUGHT TEMP DOWN TO 99.0. PATIENT CALLING APPROPRIATELY. USING URINAL INDEPENDENTLY. PATIENT APPEARS TO BE RESTING WITH EQUAL CHEST RISE/FALL NOTED. BED IN LOWEST POSITION, BED ALARM ON, CALL LIGHT WITHIN REACH. THIS RN WILL CONTINUE TO MONITOR UNTIL SHIFT CHANGE AT 0700.
[2021-12-19 05:09] LABS: Bun/Creatinine Ratio 21.9 (12.0-20.0); Calcium, Blood 8.9 mg/dL (8.5-10.1); Creatinine, Blood 3.2 mg/dL (0.60-1.20); Potassium, Blood 4.8 mmol/L (3.5-5.5)
--- NOTE | 2021-12-19 08:00 | NUR ---
ASSUMED CARE OF PT THIS AM PT SLEEPING, AWAKENS TO VERBAL STIMULI. PT. ANSWERING QUESTIONS APPROPRIATELY, DENIES PAIN AT THIS TIME, STATES "ITS MUCH BETTER THAN YESTERDAY". PT. RIGHT LEG WARM TO TOUCH, INCISION INTACT, MINIMAL RUST COLORED DRAINAGE ON DRESSING. LEFT GROIN SITE REMAINS SOFT, NON TENDER, NO HEMATOMA. PT. REQUESTING TO GET MORE SLEEP, REPORTING HE DID NOT SLEEP WELL LAST NIGHT. CALL LIGHT IN REACH. VSS THIS AM. ALL NEEDS MET AT THIS TIME.
--- NOTE | 2021-12-19 11:47 | NUR ---
ROUNDED ON PT, ASSISTED TO REPOSITION IN BED. PT. REQUESTS TO CONTINUE TO SLEEP AT THIS TIME. CALL LIGHT IN REACH, ALL NEEDS MET AT THIS TIME.
--- NOTE | 2021-12-19 14:47 | NUR ---
ROUNDED ON PT. ICE WATER PROVIDED AND URINAL EMPTIED. PT. RESTING COMFORTABLY IN BED, DRESSING CHANGED TO RIGHT FOOT. NADN. CALL LIGHT IN REACH. REPORT TO LARON THURMAN.
--- NOTE | 2021-12-19 18:00 | NUR ---
TRANSFER OF CARE AT APPROX 1500 REPORT RECEIVED FROM LISA THURMAN. NO ACUTE CHANGE SINCE TRANSFER OF CARE. PT ALERT AND ORIENTED AND ABLE TO MAKE NEEDS KNOWN. DRESSING ON RIGHT FOOT REMAINED INTACT. LEFT GROIN SITE CDI. VITALS HAS BEEN STABLE. DENIES ANY PAIN/DISCOMFORT. NO OTHER ISSUES AT THIS TIME, WILL REPORT TO ONCOMING SHIFT
--- NOTE | 2021-12-19 22:05 | NUR ---
ASSUMPTION OF CARE THIS RN ASSUMED CARE OF PATIENT AT 1900. REPORT TAKEN FROM LARON RN. PATIENT FEBRILE UPON START OF SHIFT WITH TEMP OF 101; MEDICATED PER EMAR; TEMP CAME DOWN TO 99.3. PATIENT'S OTHER VITALS STABLE; NO TELE. PATIENT DENIES PAIN. WOUND CARE ON BILATERAL FEEL DONE AT BEGINNING OF SHIFT. PATIENT TRANSFERRED TO THE [facility] FOR A BM; THIS RN REMINDED THE PATIENT TO NOT BARE WEIGHT COMPLETELY ON HIS RIGHT FOOT; THE PATIENT VERBALIZED UNDERSTANDING. WHEN PATIENT WAS TRANSFERRING BACK TO THE BED FROM [facility] THIS RN NOTED THAT THE DRESSING WAS SATURATED WITH BLOOD. BANDAGE WAS REMOVED, WOUND WAS CLEANSED AND REDRESSED. STITCHES APPEAR INTACT. LEG ELEVATED IN BED AT THIS TIME. PATIENT AGREEABLE TO USING BEDPAN FOR THE REST OF THE SHIFT. MEDICATED PER EMAR. PATIENT CONTINUES TO HAVE INTERMITTENT FORGETFULNESS AND CONFUSION ABOUT TIME/SITUATION. BED IN LOWEST POSITION, BED ALARM ON, CALL LIGHT WITHIN REACH.
[2021-12-20 04:15] LABS: Hematocrit 25.2 % (37.0-53.0); Mean Corpuscular HGB 28.1 pg (26.0-34.0); Mean Corpuscular HGB Conc 31.7 g/dL (31.5-36.5); Mean Corpuscular Volume 88 fL (80-100); Platelet Count 393 K/mm3 (150-400); RDW Standard Deviation 45.3 fL (35.1-46.3); Red Blood Cell Count 2.85 M/mm3 (4.30-5.90); White Blood Cell Count 18.04 K/mm3 (4.00-11.30)
[2021-12-20 04:42] LABS: Bun/Creatinine Ratio 23.3 (12.0-20.0); Calcium, Blood 8.7 mg/dL (8.5-10.1); Creatinine, Blood 3.09 mg/dL (0.60-1.20); Potassium, Blood 4.8 mmol/L (3.5-5.5)
--- NOTE | 2021-12-20 04:48 | NUR ---
SHIFT SUMMARY PATIENT ALERT AND ORIENTED X4 BUT HAS OCCASIONAL CONFUSION ABOUT TIME/SITUATION AND THOUGHT SEVERAL TIMES DURING THE NIGHT THAT IT WAS DAY TIME. PATIENT APPEARS FORGETFUL ABOUT CARE PERFORMED AND CONVERSATIONS WITH STAFF. NO ACUTE EVENTS DURING THIS SHIFT. PATIENT REMAINED IN BED AND HAD NO FURTHER PROBLEMS WITH BLEEDING FROM SUTURES ON RIGHT FOOT TOW AMPUTATION SITE. PATIENT DENIES PAIN. EXTREMETIES WARM. RIGHT FOOT ELEVATED ON PILLOW. PATIENT USED BEDPAN BUT WAS ONLY ABLE TO PASS SMALL HARD STOOL. PATIENT HAS CALLED APPROPRIATELY FOR STAFF ASSISTANCE AND HAS BED ALARM ON A PRECAUTION. BED IN LOWEST POSITION AND CALL LIGHT WITHIN REACH. THIS RN WILL CONTINUE TO MONITOR UNTIL SHIFT CHANGE AT 0700.
--- NOTE | 2021-12-20 17:31 | NUR ---
SHIFT SUMMARY NO ACUTE CHANGES THIS SHIFT. PATIENT HAS BEEN A&O X4 T/O SHIFT. RIGHT FOOT PAIN HAS BEEN MINIMAL TODAY, MEDICATED W/ TYLENOL X1. MILD TEMP THIS AM BUT CAME DOWN APPROPRIATELY. PATIENT UP TO CHAIR & WORKED WITH PT & OT THIS AM, TOLERATED WELL. EATING, DRINKING, & VOIDING WELL. HAD BM TODAY. DRESSING TO RIGHT FOOT REMIANS C/D/I. CALLS APPROPRIATELY, WILL REPORT TO ONCOMING RN.
[2021-12-20] MEDS ORDERED: DOXY100 PO (18:11)
[2021-12-20] MEDS ORDERED: BASAGLAR K100 UNIT/1 SC (18:12)
[2021-12-20] MEDS ORDERED: HUMALOG KW100 UNIT/1 SC (18:13)
[2021-12-21 03:52] LABS: Hematocrit 23.2 % (37.0-53.0); Hemoglobin 7.6 g/dL (13.5-17.5); Mean Corpuscular HGB Conc 32.8 g/dL (31.5-36.5); Mean Corpuscular Volume 89 fL (80-100); Mean Platelet Volume 8.8 fL (9.1-12.4); Platelet Count 409 K/mm3 (150-400); RDW Standard Deviation 45.4 fL (35.1-46.3); Red Blood Cell Count 2.62 M/mm3 (4.30-5.90)
[2021-12-21 04:23] LABS: Creatinine, Blood 3.04 mg/dL (0.60-1.20); Potassium, Blood 5.1 mmol/L (3.5-5.5)
--- NOTE | 2021-12-21 06:29 | NUR ---
NOC SHIFT SUMMARY PT SLEPT WELL OVERNIGHT, ORIENTED X4, VSS. PAIN RELIEVED WITH AVAILABLE PRNS. DRESSING CDI, NO DRAINAGE. VOIDING APPROPRIATELY. WEIGHT BEARING TOLERATED. NO ACUTE EVENTS. WILL PASS ON TO DAY RN
[2021-12-21 16:58] LABS: SARS-Cov-2 (COVID-19) PCR, MMC NEGATIVE (NEGATIVE)
--- NOTE | 2021-12-21 17:30 | NUR ---
NO ACUTE EVENTS THIS SHIFT, VSS. PT ALERT AND ORIENTED BUT FORGETFUL. PT WORKED WITH PT/OT THIS SHIFT, ABLE TO TRANSFER WITH 1 ASSIST TO CHAIR FROM BED. PT WAS UP IN CHAIR AFTER MORNING THERAPY THROUGH LUNCH. DR. SALAZAR AT BEDSIDE THIS SHIFT TO ASSESS R FOOT, REDRESSED WOUND DRESSING, AND GAVE ORDERED FOR NON WEIGHT BEARING STATES ON RLE. PT IS AGREEABLE TO DISCHARGE TO SNF. PT TAKEN BY MEDICAL TRANSPORT UPON DISCHARGE.
--- NOTE | 2021-12-21 18:47 | NUR ---
REPORT GIVEN TO NILES THURMAN AT [facility].
== END 2021-12-21 17:29 | DRG 853 ==
LOC: ER 19:04 → MEDS 12-15 02:11 → ERHOLD 12-15 02:11 → MEDS 12-15 03:00 → PCU 12-18 17:27
PROVIDERS: Family Medicine; Internal Medicine; Physician Assistant; Student in an Organized Health Care Education/Training Program; ADMIT Internal Medicine
PROC: 04CS3ZZ Extirpation of Matter from Left Posterior Tibial Artery, Percutaneous Approach (ICD-10-PCS; principal; 2021-12-18)
PROC: 04CW3ZZ Extirpation of Matter from Left Foot Artery, Percutaneous Approach (ICD-10-PCS; 2021-12-18)
PROC: 047N3Z1 Dilation of Left Popliteal Artery using Drug-Coated Balloon, Percutaneous Approach (ICD-10-PCS; 2021-12-18)
PROC: 047U3ZZ Dilation of Left Peroneal Artery, Percutaneous Approach (ICD-10-PCS; 2021-12-18)
PROC: 047U3ZZ Dilation of Left Peroneal Artery, Percutaneous Approach (ICD-10-PCS; 2021-12-18)
PROC: 047S3ZZ Dilation of Left Posterior Tibial Artery, Percutaneous Approach (ICD-10-PCS; 2021-12-18)
PROC: 047W3ZZ Dilation of Left Foot Artery, Percutaneous Approach (ICD-10-PCS; 2021-12-18)
DX: A41.9 Sepsis, unspecified organism (principal); G92.8 Other toxic encephalopathy; I96 Gangrene, not elsewhere classified; N18.4 Chronic kidney disease, stage 4 (severe); E87.1 Hypo-osmolality and hyponatremia; E11.42 Type 2 diabetes mellitus with diabetic polyneuropathy; I25.10 Atherosclerotic heart disease of native coronary artery without angina pectoris; E78.5 Hyperlipidemia, unspecified; E87.5 Hyperkalemia; E11.22 Type 2 diabetes mellitus with diabetic chronic kidney disease; I12.9 Hypertensive chronic kidney disease with stage 1 through stage 4 chronic kidney disease, or unspecified chronic kidney disease; E11.51 Type 2 diabetes mellitus with diabetic peripheral angiopathy without gangrene; T40.605A Adverse effect of unspecified narcotics, initial encounter; Z89.432 Acquired absence of left foot; Z98.890 Other specified postprocedural states; Z88.8 Allergy status to other drugs, medicaments and biological substances; Z90.89 Acquired absence of other organs; Z95.820 Peripheral vascular angioplasty status with implants and grafts; Z79.02 Long term (current) use of antithrombotics/antiplatelets; Z79.82 Long term (current) use of aspirin; Z79.899 Other long term (current) drug therapy
CPT/HCPCS: 36415; 36430; 37224; 37229; 37232; 70450; 71045; 73620; 75716; 75774; 76937; 80048; 80053; 80069; 82947; 83605; 83735; 84100; 84145; 85025; 85027; 85347; 86850; 86900; 86901; 86923; 87040; 93005; 93010; 96365; 96366; 96368; 97110; 97116; 97163; 97166; 97530; 97535; 99152; 99153; 99285-25; A9270; C1724; C1725; C1760; C1769; C1887; C1894; C2623; J0692; J1644; J1650; J1815; J2250; J2543; J3010; J3370; J7030; J7040; J7050; P9016; Q9967; U0004

== ENCOUNTER 2021-12-22 19:08 | Emergency (ER) | payer MEDICARE ==
[~2021-12-22] VITALS: Ht 182.9 cm; Wt 100.2 kg
[~2021-12-22 19:08] MED LIST changes: +BASAGLAR K100 UNIT/1 SC; +DOXY100 PO
== END 2021-12-22 21:00 | disposition home or self-care (01) ==
LOC: ER 19:08
DX: S91.301A Unspecified open wound, right foot, initial encounter (principal); X58.XXXA Exposure to other specified factors, initial encounter; L08.9 Local infection of the skin and subcutaneous tissue, unspecified; E11.40 Type 2 diabetes mellitus with diabetic neuropathy, unspecified; Z89.429 Acquired absence of other toe(s), unspecified side
CPT/HCPCS: 99283

== ENCOUNTER 2022-01-01 17:01 | Emergency (ER) | payer MEDICARE ==
[~2022-01-01] VITALS: Ht 190.5 cm; Wt 104.3 kg
[2022-01-01 18:46] LABS: BASOPHILS ABSOLUTE AUTO 0.11 K/mm3 (0.00-0.23); BASOPHILS PERCENT AUTO 1 % (0-2); EOSINOPHILS ABSOLUTE AUTO 0.34 K/mm3 (0.00-0.68); EOSINOPHILS PERCENT AUTO 3 % (0-6); Hematocrit 28.8 % (37.0-53.0); Hemoglobin 9.1 g/dL (13.5-17.5); IMMATURE GRAN ABSOLUTE AUTO 0.07 K/mm3 (0.00-0.10); IMMATURE GRAN PERCENT AUTO 1 % (0-1); LYMPHOCYTES ABSOLUTE AUTO 2.35 K/mm3 (0.84-5.20); LYMPHOCYTES PERCENT AUTO 22 % (21-46); MONOCYTES ABSOLUTE AUTO 0.59 K/mm3 (0.16-1.47); MONOCYTES PERCENT AUTO 6 % (4-13); Mean Corpuscular HGB 28.2 pg (26.0-34.0); Mean Corpuscular HGB Conc 31.6 g/dL (31.5-36.5); Mean Corpuscular Volume 89 fL (80-100); Mean Platelet Volume 8.8 fL (9.1-12.4); NEUTROPHILS ABSOLUTE AUTO 7.25 K/mm3 (1.96-9.15); NEUTROPHILS PERCENT AUTO 68 % (41-73); Platelet Count 392 K/mm3 (150-400); RDW Coefficient Variation 14.2 % (11.7-14.2); RDW Standard Deviation 45.9 fL (35.1-46.3); Red Blood Cell Count 3.23 M/mm3 (4.30-5.90); White Blood Cell Count 10.71 K/mm3 (4.00-11.30)
[2022-01-01 18:56] LABS: Albumin, Blood 2.6 g/dL (3.4-5.0); Albumin/Globulin Ratio 0.5 (0.8-1.8); Bilirubin, Total 0.2 mg/dL (0.1-1.0); Bun/Creatinine Ratio 27.1 (12.0-20.0); Calcium, Blood 9.1 mg/dL (8.5-10.1); Creatinine, Blood 2.03 mg/dL (0.60-1.20); Globulin, Blood 5.2 g/dL (2.2-4.0); Potassium, Blood 5.2 mmol/L (3.5-5.5); Total Protein, Blood 7.8 g/dL (6.4-8.2)
== END 2022-01-01 20:10 | disposition home or self-care (01) ==
LOC: ER 17:01
PROVIDERS: Emergency Medicine
DX: T81.31XA Disruption of external operation (surgical) wound, not elsewhere classified, initial encounter (principal); E11.9 Type 2 diabetes mellitus without complications; Z88.8 Allergy status to other drugs, medicaments and biological substances; Z79.82 Long term (current) use of aspirin; Z79.4 Long term (current) use of insulin; Y83.8 Other surgical procedures as the cause of abnormal reaction of the patient, or of later complication, without mention of misadventure at the time of the procedure
CPT/HCPCS: 80053; 85025

== ENCOUNTER 2022-02-06 09:05 | Day surgery (SDC) | payer MEDICARE ==
[~2022-02-06] VITALS: Ht 190.5 cm; Wt 97.7 kg
[2022-02-06] MEDS ORDERED: NOVOLIN N100 UNIT/2 SC (09:42)
--- NOTE | 2022-02-06 12:00 | NUR ---
PT TO RECOVERY ROOM POST PROCEDURE. PT AWAKE AND ORIENTED, COOPERATIVE; DENIES PAIN POST PROCEDURE. [place] SR 70'S, B/P 142/75, SPO2 100% RA, AFEBRILE. L GROIN NO SWELLING/HEMATOMA, TEGADERM DRSG INTACT; ANGIO SEAL DEPLOYED, BLE: DOPPLER PULSES X 2. R PT NO SWELLING/HEMATOMA, TEGADERM DRSG INTACT.
--- NOTE | 2022-02-06 13:05 | NUR ---
PT HOB ELEVATED, SITES UNCHANGED.
--- NOTE | 2022-02-06 14:15 | NUR ---
PT DANGLED AT BEDSIDE, SITES UNCHANGED. PT ASSISTED GETTING DRESSED, SITES UNCHANGED; IV REMOVED-CANNULA INTACT. R FOOT OUTER DRSG REPLACED WITH KERLIX WRAP.
--- NOTE | 2022-02-06 14:23 | NUR ---
PT AND RECEIVED DISCHARGE INSTRUCTIONS, MED LIST AND AFTER CARE INSTRUCTIONS; VERBALIZED GOOD UNDERSTANDING. PT LEFT FACILITY VIA W/C, CONDITION STABLE.
== END 2022-02-06 14:49 | disposition home or self-care (01) ==
LOC: MHTC 09:05
DX: E11.52 Type 2 diabetes mellitus with diabetic peripheral angiopathy with gangrene (principal); I70.229 Atherosclerosis of native arteries of extremities with rest pain, unspecified extremity; Z89.421 Acquired absence of other right toe(s)
CPT/HCPCS: 76937; 85347; 99152; 99153; C1725; C1760; C1769; C1887; C1894; J1644; J2250; J3010; J7030; J7050; Q9967